=== PATIENT | male | born 1960 | race Caucasian/White ===

== ENCOUNTER 2017-11-02 14:48 | Inpatient (IN) | payer MEDICARE, OTHER ==
[~2017-11-02] VITALS: Ht 182.9 cm; Wt 63.0 kg
[2017-11-02] VITALS (9 sets, daily range): BP systolic 130–167; BP diastolic 63–76; PULSE 96–101; RESP 16–18; TEMP 97.8–98.5; O2SAT 97–100
[~2017-11-02 14:48] MED LIST: ECOT81TA2 PO; IPRAAER INH; OMEP20TA PO; OXYC15TA PO; VALS80 PO; XANA1TAB6 PO
[2017-11-02] MEDS ORDERED: DIOV80TA4 PO (15:19)
[2017-11-02] MEDS ORDERED: OMEP20TA93 PO (15:19)
[2017-11-02] MEDS ORDERED: OXYC15TA PO (15:19)
[2017-11-02] MEDS ORDERED: ASPI-516 PO (15:19)
[2017-11-02] MEDS: MORPHINE SULFATE 4 MG/ML INJ IV PUSH ONE ×2 (15:30→15:47)
[2017-11-02] MEDS ORDERED: SODIUM CHLOR 0.9% 1000 ML INJ 1,000 ML IV ONE (15:30)
[2017-11-02] MEDS ORDERED: ONDANSETRON HCL 4 MG/2 ML VIAL IV PUSH ONE (15:30)
--- NOTE | 2017-11-02 15:41 | PD ---
HPI Chief Complaint: Pain: Acute or Chronic Time Seen by Provider: 15:26 Travel History International Travel<30 days: No Contact w/Intl Traveler<30days: No Traveled to known affect area: No History of Present Illness HPI 57-year-old male with a history of Takayasu arteritis, vasculitis, rheumatoid arthritis and leukemia presents to emergency department complaining of right leg pain for the last 3 days. Patient also states he has felt dizzy constantly has had a decreased appetite. States his leg pain issues on the anterior aspects of the entire leg. Rated 10/10. Nothing improves or exacerbates his pain. Describes his pain as constant an achy. States he has chronic constipation and his last bowel movement was 4-5 days ago. In addition, patient also complains of lower abdominal pain and cramping. Patient denies radiation of pain. States he had abdominal surgery years ago on his abdominal wall. 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 Avelar. Previously, he followed Dr. Avelar for his chronic arteritis. Patient takes a baby aspirin daily but otherwise no other blood thinners. Patient denies chronic cardiac or pulmonary issues. Denies fever or chills. PFSH Past Medical History Hx Anticoagulant Therapy: Yes Anemia: Yes Blood Disorders: Yes Cancer: Yes Cardiovascular Problems: No Diabetes: No Endocrine: No Genitourinary: No Hepatitis: No Hiatal Hernia: Yes Hypertension: Yes Immune Disorder: Yes Musculoskeletal: No Neurologic: No Psychiatric: No Reproductive: No Respiratory: Yes Thyroid Disease: No Tetanus Vaccination: Unknown Influenza Vaccination: No Past Surgical History Abdominal Surgery: Yes (HERNIA REPAIR) AICD: No Ear Surgery: No Eye Surgery: No Genitourinary Surgery: No Gynecologic Surgery: No Oral Surgery: Yes (TEETH REMOVED) Other Surgery: Yes Social History Alcohol Use: Yes (ONE DRINK A DAY) Tobacco Use: Yes Substance Use: Yes (POT) Allergies-Medications (Allergen,Severity, Reaction): Coded Allergies: ciprofloxacin (Verified Allergy, Severe, 11/02/17) seizures,foaming at mouth Sulfa (Sulfonamide Antibiotics) (Verified Allergy, Intermediate, hives, ) penicillin G (Verified Adverse Reaction, Severe, seizure, 11/02/17) seizure, foaming at mouth ibuprofen (Verified Adverse Reaction, Intermediate, abdominal pain, ) severe abdominal pain morphine (Verified Adverse Reaction, Intermediate, Nausea/Vomiting, ) Uncoded Allergies: mycin (Adverse Reaction, Intermediate, 02/07/15) able to take zpac, has stomach ache diarhea Reported Meds & Prescriptions Reported Meds & Active Scripts Active Reported Omeprazole 20 Mg Tab 20 Mg PO EVERY OTHER DAY Oxycodone (Oxycodone HCl) 15 Mg Tab 15 Mg PO Q6HR Aspirin 81 Mg Chew 81 Mg PO HS Diovan (Valsartan) 80 Mg Tab 80 Mg PO HS Review of Systems Except as stated in HPI: all other systems reviewed are Neg Physical Exam Narrative GENERAL: Well-developed well-nourished, pale, easily agitated SKIN: Focused skin assessment warm/dry. Pale HEAD: Atraumatic. Normocephalic. EYES: Pupils equal and round. No scleral icterus. No injection or drainage. Pale conjunctivae ENT: No nasal bleeding or discharge. Mucous membranes pink and moist. NECK: Trachea midline. No JVD. CARDIOVASCULAR: Regular rate and rhythm. No murmur appreciated. RESPIRATORY: No accessory muscle use. Clear to auscultation. Breath sounds equal bilaterally. GASTROINTESTINAL: Abdomen soft, non-tender, nondistended. Hepatic and splenic margins not palpable. Good rectal tone, brown stool. MUSCULOSKELETAL: No obvious deformities. No clubbing. No cyanosis. No edema. NEUROLOGICAL: Awake and alert. No obvious cranial nerve deficits. Motor grossly within normal limits. Normal speech. PSYCHIATRIC: Appropriate mood and affect; insight and judgment normal. Data Data Last Documented VS Vital Signs Date Time Temp Pulse Resp B/P (MAP) Pulse Ox O2 Delivery O2 Flow Rate FiO2 11/02/17 17:00 97.8 98 17 153/65 (94) 99 Room Air Orders Orders Electrocardiogram (11/02/17 15:26) Complete Blood Count With Diff (11/02/17 15:26) Comprehensive Metabolic Panel (11/02/17 15:26) Prothrombin Time / Inr (Pt) (11/02/17 15:26) Act Partial Throm Time (Ptt) (11/02/17 15:26) Urinalysis - C+S If Indicated (11/02/17 15:26) Type And Screen (11/02/17 15:26) Chest, Single Ap (11/02/17 15:26) Oxygen Administration (11/02/17 15:26) Ecg Monitoring (11/02/17 15:26) Morphine Inj (Morphine Inj) (11/02/17 15:30) Orthostatic Vital Signs (11/02/17 15:29) Ondansetron Inj (Zofran Inj) (11/02/17 15:30) Sodium Chlor 0.9% 1000 Ml Inj (Ns 1000 M (11/02/17 15:30) Oxycodone (Roxicodone) (11/02/17 16:00) Red Blood Cells (Rbc) (11/02/17 17:17) Blood Product Administration (11/02/17 17:17) Admit Order (Ed Use Only) (11/02/17 17:28) Labs Laboratory Tests Test 11/02/17 15:30 11/02/17 16:30 Haptoglobin 189 MG/DL Prothrombin Time 11.0 SEC Prothromb Time International Ratio 1.1 RATIO Activated Partial Thromboplast Time 22.6 SEC Blood Urea Nitrogen 15 MG/DL Creatinine 1.21 MG/DL Random Glucose 192 MG/DL Total Protein 7.0 GM/DL Albumin 3.3 GM/DL Calcium Level 9.0 MG/DL Alkaline Phosphatase 90 U/L Aspartate Amino Transf (AST/SGOT) 19 U/L Alanine Aminotransferase (ALT/SGPT) 16 U/L Total Bilirubin 1.2 MG/DL Sodium Level 129 MEQ/L Potassium Level 4.0 MEQ/L Chloride Level 93 MEQ/L Carbon Dioxide Level 23.1 MEQ/L Anion Gap 13 MEQ/L Estimat Glomerular Filtration Rate 62 ML/MIN Iron Level 197 MCG/DL Total Iron Binding Capacity 202 MCG/DL Percent Iron Saturation 97.7 % Vitamin B12 Level 464 PG/ML Folate 1.2 NG/ML White Blood Count 3.9 TH/MM3 Red Blood Count 0.75 MIL/MM3 Hemoglobin 3.4 GM/DL Hematocrit 9.7 % Mean Corpuscular Volume 129.8 FL Mean Corpuscular Hemoglobin 45.0 PG Mean Corpuscular Hemoglobin Concent 34.7 % Red Cell Distribution Width 15.3 % Platelet Count 299 TH/MM3 Mean Platelet Volume 6.5 FL Neutrophils (%) (Auto) 85.4 % Lymphocytes (%) (Auto) 10.3 % Monocytes (%) (Auto) 3.8 % Eosinophils (%) (Auto) 0.2 % Basophils (%) (Auto) 0.3 % Neutrophils # (Auto) 3.3 TH/MM3 Lymphocytes # (Auto) 0.4 TH/MM3 Monocytes # (Auto) 0.2 TH/MM3 Eosinophils # (Auto) 0.0 TH/MM3 Basophils # (Auto) 0.0 TH/MM3 CBC Comment AUTO DIFF Differential Comment AUTO DIFF CONFIRMED Platelet Estimate NORMAL Platelet Morphology Comment NORMAL Basophilic Stippling FAINT Spherocytes OCC Reticulocyte Count 1.2 % Absolute Reticulocyte Count 8.8 MIL/L Hematology Comments [facility] Medical Decision Making Medical Screen Exam Complete: Yes Emergency Medical Condition: Yes Differential Diagnosis Anemia, pneumonia, upper respiratory infection, rheumatoid arthritis, constipation Narrative Course 57-year-old male with a history of Takayasu arteritis, vasculitis, rheumatoid arthritis and leukemia presents to emergency department complaining of right leg pain for the last 3 days. Patient also states he has felt dizzy constantly has had a decreased appetite. States his leg pain issues on the anterior aspects of the entire leg. Rated 10/10. Nothing improves or exacerbates his pain. Describes his pain as constant an achy. States he has chronic constipation and his last bowel movement was 4-5 days ago. In addition, patient also complains of lower abdominal pain and cramping. Patient denies radiation of pain. States he had abdominal surgery years ago on his abdominal wall. 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 Avelar. Previously, he followed Dr. Avelar for his chronic arteritis N Dr. Shelton for his rheumatoid arthritis. Patient takes a baby aspirin daily but otherwise no other blood thinners. Patient denies chronic cardiac or pulmonary issues. Denies fever or chills. He says he has had leukemia since 2001 and previously followed [facility]. Vital signs stable. Physical exam findings-pale skin, good rectal tone with brown stool. Guaiac negative. Last Impressions Chest X-Ray 11/02/17 1526 Signed Impressions: Service Date/Time: Thursday, November 02, 2017 15:35 - CONCLUSION: 1. No acute cardiopulmonary findings. Deven Govea MD Laboratory Tests Test 11/02/17 15:30 11/02/17 16:30 Prothrombin Time 11.0 SEC Prothromb Time International Ratio 1.1 RATIO Activated Partial Thromboplast Time 22.6 SEC Blood Urea Nitrogen 15 MG/DL Creatinine 1.21 MG/DL Random Glucose 192 MG/DL Total Protein 7.0 GM/DL Albumin 3.3 GM/DL Calcium Level 9.0 MG/DL Alkaline Phosphatase 90 U/L Aspartate Amino Transf (AST/SGOT) 19 U/L Alanine Aminotransferase (ALT/SGPT) 16 U/L Total Bilirubin 1.2 MG/DL Sodium Level 129 MEQ/L Potassium Level 4.0 MEQ/L Chloride Level 93 MEQ/L Carbon Dioxide Level 23.1 MEQ/L Anion Gap 13 MEQ/L Estimat Glomerular Filtration Rate 62 ML/MIN White Blood Count 3.9 TH/MM3 Red Blood Count 0.75 MIL/MM3 Hemoglobin 3.4 GM/DL Hematocrit 9.7 % Mean Corpuscular Volume 129.8 FL Mean Corpuscular Hemoglobin 45.0 PG Mean Corpuscular Hemoglobin Concent 34.7 % Red Cell Distribution Width 15.3 % Platelet Count 299 TH/MM3 Mean Platelet Volume 6.5 FL Neutrophils (%) (Auto) 85.4 % Lymphocytes (%) (Auto) 10.3 % Monocytes (%) (Auto) 3.8 % Eosinophils (%) (Auto) 0.2 % Basophils (%) (Auto) 0.3 % Neutrophils # (Auto) 3.3 TH/MM3 Lymphocytes # (Auto) 0.4 TH/MM3 Monocytes # (Auto) 0.2 TH/MM3 Eosinophils # (Auto) 0.0 TH/MM3 Basophils # (Auto) 0.0 TH/MM3 CBC Comment AUTO DIFF 3 units PRBCs typed and screened. Oxycodone 15 mg administered in the emergency department for lower extremity pain. Note that patient takes this dose at home for his chronic leg pain and says he folows Dr Caballero for his rheumatoid arthritis. Pt does not follow heme/onc. Pt will be admitted to Dr. Cook for blood transfusion and monitoring. HemaPrompt Point of Care Internal Pos. & Neg. Controls: Passed Fecal Specimen Occult Blood: Negative Diagnosis Primary Impression: Anemia Qualified Codes: D63.8 - Anemia in other chronic diseases classified elsewhere Admitting Information Admitting Physician Requests: Admit Condition: Stable Jenn Pool Nov 02, 2017 15:41
--- NOTE | 2017-11-02 16:21 | RADRPT ---
EXAM DATE/TIME: 11/02/2017 15:35 [facility] COMPARISON: No previous studies available for comparison. INDICATIONS : Short of breath, weakness chest and back pain MEDICAL HISTORY : thrombolytic therapy, asthma SURGICAL HISTORY : None. ENCOUNTER: Initial ACUITY: 1 day PAIN SCORE: 10/10 LOCATION: Bilateral chest FINDINGS: A single view of the chest demonstrates the lungs to be symmetrically aerated without evidence of mas s, infiltrate or effusion. The cardiomediastinal contours are unremarkable. Osseous structures are intact. CONCLUSION: 1. No acute cardiopulmonary findings. Deven Govea MD on November 02, 2017 at 16:18 Board Certified Radiologist. This report was verified electronically.
[2017-11-02 16:29] LABS: INTERNATIONAL NORMALIZED RATIO 1.1 RATIO
[2017-11-02 16:40] LABS: ALBUMIN 3.3 GM/DL (3.4-5.0); AST (GOT) 19 U/L (15-37); BICARBONATE 23.1 MEQ/L (21.0-32.0); BLOOD UREA NITROGEN 15 MG/DL (7-18); CHLORIDE 93 MEQ/L (98-107); CREATININE 1.21 MG/DL (0.60-1.30); GLOMERULAR FILTRATION RATE 62 ML/MIN (>89); GLUCOSE,RANDOM 192 MG/DL (74-106); SODIUM (NA) 129 MEQ/L (136-145)
[2017-11-02 16:41] LABS: ALT (GPT) 16 U/L (12-78)
[2017-11-02 16:43] LABS: ALKALINE PHOSPHATASE 90 U/L (45-117); TOTAL BILIRUBIN ADULT 1.2 MG/DL (0.2-1.0)
[2017-11-02 17:07] LABS: AUTOMATED NEUTROPHIL # 3.3 TH/MM3 (1.8-7.7); BASOPHIL % 0.3 % (0.0-2.0); EOSINOPHIL % 0.2 % (0.0-4.0); LYMPH % 10.3 % (9.0-44.0); LYMPHOCYTE # 0.4 TH/MM3 (1.0-4.8); MEAN CELL VOLUME 129.8 FL (80.0-100.0); MEAN CORPUSCULAR HGB CONC 34.7 % (32.0-36.0); MEAN PLATELET VOLUME 6.5 FL (7.0-11.0); MONO % 3.8 % (0.0-8.0); MONOCYTE # 0.2 TH/MM3 (0-0.9); NEUT % 85.4 % (16.0-70.0); PLATELET COUNT 299 TH/MM3 (150-450); RED CELL DISTRIBUTION WIDTH 15.3 % (11.6-17.2); WHITE BLOOD COUNT 3.9 TH/MM3 (4.0-11.0)
[2017-11-02 17:10] LABS: RED BLOOD COUNT 0.75 MIL/MM3 (4.50-5.90)
[2017-11-02 17:14] LABS: HEMATOCRIT 9.7 % (39.0-51.0); HEMOGLOBIN 3.4 GM/DL (13.0-17.0)
[2017-11-02 17:39] LABS: SPHEROCYTES OCC (NORMAL)
--- NOTE | 2017-11-02 17:40 | HHI.HP ---
HPI [facility] Primary Care Physician No Primary Care Physician Admission Diagnosis Anemia Diagnoses: (1) Symptomatic anemia Chief Complaint: Fatigue, and I look pale Travel History International Travel<30 Days: No Contact w/Intl Traveler <30 Da: No Traveled to Known Affected Are: No History of Present Illness 57-year-old male with a history of Takayasu arteritis and her hypertension came to the emergency department for evaluation of bilateral lower extremity pain 5 days along with generalized fatigue. His had significant leg cramping. Patient also reported episode of dizziness as well as decreased appetite over the past several days. Patient also reported episode of bright red blood per rectum with last episode 4 days ago. However over the past few days patient has reported constipation and abdominal pain. He is been followed by Dr. Ross for his chronic arthritis was ordered some laboratory work, and patient was found to have low hemoglobin for which he was referred to the emergency department. He also reported shortness of breath however denies any chest pain. He has no hemoptysis or hematuria. H&H in the ED was 3.4/9.7 Review of Systems Except as stated in HPI: all other systems reviewed are Neg Past Family Social History Past Medical History History of Takayasu arteritis, Vasculitis, Rheumatoid arthritis Leukemia Hypertension PAD Past Surgical History Hernia repair Fem-pop Reported Medications Omeprazole 20 Mg Tab 20 Mg PO EVERY OTHER DAY Oxycodone (Oxycodone HCl) 15 Mg Tab 15 Mg PO Q6HR Aspirin 81 Mg Chew 81 Mg PO HS Diovan (Valsartan) 80 Mg Tab 80 Mg PO HS Allergies: Coded Allergies: ciprofloxacin (Verified Allergy, Severe, 11/02/17) seizures,foaming at mouth Sulfa (Sulfonamide Antibiotics) (Verified Allergy, Intermediate, hives, ) penicillin G (Verified Adverse Reaction, Severe, seizure, 11/02/17) seizure, foaming at mouth ibuprofen (Verified Adverse Reaction, Intermediate, abdominal pain, ) severe abdominal pain morphine (Verified Adverse Reaction, Intermediate, Nausea/Vomiting, ) Uncoded Allergies: mycin (Adverse Reaction, Intermediate, 02/07/15) able to take zpac, has stomach ache diarhea Family History Positive for heart disease, hypertension, diabetes in both parents Social History Alcohol Use: Yes (ONE DRINK A DAY) Tobacco Use: Yes Substance Use: Yes (POT) Physical Exam Vital Signs Vital Signs Date Time Temp Pulse Resp B/P (MAP) Pulse Ox O2 Delivery O2 Flow Rate FiO2 11/02/17 17:00 97.8 98 17 153/65 (94) 99 Room Air 11/02/17 17:00 17 11/02/17 15:29 100 18 140/63 (88) 98 17 154/63 (93) 11/02/17 15:29 100 Room Air 11/02/17 15:12 98.5 96 18 140/63 (88) 100 Room Air 11/02/17 15:12 98 18 11/02/17 15:07 98.5 99 18 140/63 (88) 97 Physical Exam GENERAL: This is a well-nourished, well-developed patient, in no apparent distress. SKIN: No rashes, ecchymoses or lesions. Cool and dry. HEAD: Atraumatic. Normocephalic. No temporal or scalp tenderness. EYES: Pupils equal round and reactive. Extraocular motions intact. No scleral icterus. No injection or drainage. ENT: Nose without bleeding, purulent drainage or septal hematoma. Throat without erythema, tonsillar hypertrophy or exudate. Uvula midline. Airway patent. NECK: Trachea midline. No JVD or lymphadenopathy. Supple, nontender, no meningeal signs. CARDIOVASCULAR: Regular rate and rhythm with II/ LOC RESPIRATORY: Clear to auscultation. Breath sounds equal bilaterally. No wheezes , rales, or rhonchi. GASTROINTESTINAL: Abdomen soft, non-tender, nondistended. No hepato-splenomegaly , or palpable masses. No guarding. MUSCULOSKELETAL: Extremities without clubbing, cyanosis, or edema. No joint tenderness, effusion, or edema noted. No calf tenderness. Negative Homans sign bilaterally. NEUROLOGICAL: Awake and alert. Cranial nerves II through XII intact. Motor and sensory grossly within normal limits. Five out of 5 muscle strength in all muscle groups. Normal speech. Laboratory Laboratory Tests Test 11/02/17 15:30 11/02/17 16:30 Prothrombin Time 11.0 Prothromb Time International Ratio 1.1 Activated Partial Thromboplast Time 22.6 Blood Urea Nitrogen 15 Creatinine 1.21 Random Glucose 192 Total Protein 7.0 Albumin 3.3 Calcium Level 9.0 Alkaline Phosphatase 90 Aspartate Amino Transf (AST/SGOT) 19 Alanine Aminotransferase (ALT/SGPT) 16 Total Bilirubin 1.2 Sodium Level 129 Potassium Level 4.0 Chloride Level 93 Carbon Dioxide Level 23.1 Anion Gap 13 Estimat Glomerular Filtration Rate 62 White Blood Count 3.9 Red Blood Count 0.75 Hemoglobin 3.4 Hematocrit 9.7 Mean Corpuscular Volume 129.8 Mean Corpuscular Hemoglobin 45.0 Mean Corpuscular Hemoglobin Concent 34.7 Red Cell Distribution Width 15.3 Platelet Count 299 Mean Platelet Volume 6.5 Neutrophils (%) (Auto) 85.4 Lymphocytes (%) (Auto) 10.3 Monocytes (%) (Auto) 3.8 Eosinophils (%) (Auto) 0.2 Basophils (%) (Auto) 0.3 Neutrophils # (Auto) 3.3 Lymphocytes # (Auto) 0.4 Monocytes # (Auto) 0.2 Eosinophils # (Auto) 0.0 Basophils # (Auto) 0.0 CBC Comment AUTO DIFF Result Diagram: 11/02/17 1630 11/02/17 1530 Imaging Last Impressions Chest X-Ray 11/02/17 1526 Signed Impressions: Service Date/Time: Thursday, November 02, 2017 15:35 - CONCLUSION: 1. No acute cardiopulmonary findings. MD Coleen Cardenas VTE Risk Assessment Coleen VTE Risk Assessment: No/Low Risk (score <= 1) Caprini Risk Assessment Model Point Value = 1 Point Value = 2 Point Value = 3 Point Value = 5 Age 41-60 Minor surgery BMI > 25 kg/m2 Swollen legs Varicose veins or History of unexplained or recurrent spontaneous Oral contraceptives or hormone replacement Sepsis (< 1 month) Serious lung disease, including pneumonia (< 1 month) Abnormal pulmonary function Acute myocardial infarction Congestive heart failure (< 1 month) History of inflammatory bowel disease Medical patient at bed rest Age 61-74 Arthroscopic surgery Major open surgery (> 45 min) Laparoscopic surgery (> 45 min) Malignancy Confined to bed (> 72 hours) Immobilizing plaster cast Central venous access Age >= 75 History of VTE Family history of VTE Factor V Leiden Prothrombin [id number] Lupus anticoagulant Anticardiolipin antibodies Elevated serum homocysteine Heparin-induced thrombocytopenia Other congenital or acquired thrombophilia Stroke (< 1 month) Elective arthroplasty Hip, pelvis, or leg fracture Acute spinal cord injury (< 1 month) Prophylaxis Regimen Total Risk Factor Score Risk Level Prophylaxis Regimen 0-1 Low Early ambulation 2 Moderate Order ONE of the following: *Sequential Compression Device (SCD) *Heparin 5000 units SQ BID 3-4 Higher Order ONE of the following medications: *Heparin 5000 units SQ TID *Enoxaparin/Lovenox 40 mg SQ daily (WT < 150 kg, CrCl > 30 mL/min) *Enoxaparin/Lovenox 30 mg SQ daily (WT < 150 kg, CrCl > 10-29 mL/min) *Enoxaparin/Lovenox 30 mg SQ BID (WT < 150 kg, CrCl > 30 mL/min) AND/OR *Sequential Compression Device (SCD) 5 or more Highest Order ONE of the following medications: *Heparin 5000 units SQ TID (Preferred with Epidurals) *Enoxaparin/Lovenox 40 mg SQ daily (WT < 150 kg, CrCl > 30 mL/min) *Enoxaparin/Lovenox 30 mg SQ daily (WT < 150 kg, CrCl > 10-29 mL/min) *Enoxaparin/Lovenox 30 mg SQ BID (WT < 150 kg, CrCl > 30 mL/min) AND *Sequential Compression Device (SCD) Assessment and Plan Problem List: (1) Symptomatic anemia ICD Code: D64.9 - Anemia, unspecified Assessment and Plan 57 years with Symptomatic anemia GI bleeding Transfuse 3 units PRBC Consult GI for evaluation for possible Panendoscopy Consult hematology,as patient with a h/o leukemia Check iron study/haptoglobin/reticulocyte count/B-12 and folate Serial H&H monitoring and hold aspirin PPI Hypertension Resume outpatient medications Mild hyponatremia Monitor electrolytes Constipation secondary to narcotic use Stool softener DVT prophylaxis: Chemical anti-prophylaxis is contraindicated GI prophylaxis: PPI Code Status Full code Discussed Condition With Patient, ED PA Physician Certification 2 Midnight Certification Type: Admission for Inpatient Services Order for Inpatient Services The services are ordered in accordance with Medicare regulations or non- Medicare payer requirements, as applicable. In the case of services not specified as inpatient-only, they are appropriately provided as inpatient services in accordance with the 2-midnight benchmark. Estimated LOS (days): 2 days is the estimated time the patient will need to remain in the hospital, assuming treatment plan goals are met and no additional complications. Post-Hospital Plan: Not yet determined Lobito Cook MD Nov 02, 2017 17:40
[2017-11-02] MEDS ORDERED: BISACODYL 10 MG SUPP RECTAL PRN (17:45)
[2017-11-02] MEDS ORDERED: LACTULOSE SYRUP 20 GM/30 ML CUP PO PRN (17:45)
[2017-11-02] MEDS ORDERED: NALOXONE HCL 0.4 MG/ML AMP IV PUSH PRN (17:45)
[2017-11-02] MEDS ORDERED: SODIUM CHLORIDE 0.9% FLUSH 10 ML FLUSH IV FLUSH PRN (17:45)
[2017-11-02] MEDS ORDERED: SENNOSIDES 8.6 MG TAB PO PRN (17:45)
[2017-11-02] MEDS ORDERED: MAGNESIUM HYDROXIDE SUSP 30 ML CUP PO PRN (17:45)
[2017-11-02] MEDS ORDERED: ACETAMINOPHEN 325 MG TAB PO PRN ×2 (17:45)
[2017-11-02 18:39] LABS: RETIC # 8.8 MIL/L (20.0-150.0); RETIC % 1.2 % (0.4-3.0)
[2017-11-02 18:56] LABS: % SATURATION IRON PROFILE 97.7 % (20-50); IRON (FE) 197 MCG/DL (65-175); TOTAL IRON BINDING CAPACITY 202 MCG/DL (250-450)
[2017-11-02 19:21] LABS: FOLATE 1.2 NG/ML (3.1-17.5)
--- NOTE | 2017-11-02 19:46 | PD ---
Data Data Last Documented VS Vital Signs Date Time Temp Pulse Resp B/P (MAP) Pulse Ox O2 Delivery O2 Flow Rate FiO2 11/02/17 17:00 97.8 98 17 153/65 (94) 99 Room Air Orders Orders Electrocardiogram (11/02/17 15:26) Complete Blood Count With Diff (11/02/17 15:26) Comprehensive Metabolic Panel (11/02/17 15:26) Prothrombin Time / Inr (Pt) (11/02/17 15:26) Act Partial Throm Time (Ptt) (11/02/17 15:26) Urinalysis - C+S If Indicated (11/02/17 15:26) Type And Screen (11/02/17 15:26) Chest, Single Ap (11/02/17 15:26) Oxygen Administration (11/02/17 15:26) Ecg Monitoring (11/02/17 15:26) Morphine Inj (Morphine Inj) (11/02/17 15:30) Orthostatic Vital Signs (11/02/17 15:29) Ondansetron Inj (Zofran Inj) (11/02/17 15:30) Sodium Chlor 0.9% 1000 Ml Inj (Ns 1000 M (11/02/17 15:30) Oxycodone (Roxicodone) (11/02/17 16:00) Red Blood Cells (Rbc) (11/02/17 17:17) Blood Product Administration (11/02/17 17:17) Admit Order (Ed Use Only) (11/02/17 17:28) Labs Laboratory Tests Test 11/02/17 15:30 11/02/17 16:30 Haptoglobin 189 MG/DL Prothrombin Time 11.0 SEC Prothromb Time International Ratio 1.1 RATIO Activated Partial Thromboplast Time 22.6 SEC Blood Urea Nitrogen 15 MG/DL Creatinine 1.21 MG/DL Random Glucose 192 MG/DL Total Protein 7.0 GM/DL Albumin 3.3 GM/DL Calcium Level 9.0 MG/DL Alkaline Phosphatase 90 U/L Aspartate Amino Transf (AST/SGOT) 19 U/L Alanine Aminotransferase (ALT/SGPT) 16 U/L Total Bilirubin 1.2 MG/DL Sodium Level 129 MEQ/L Potassium Level 4.0 MEQ/L Chloride Level 93 MEQ/L Carbon Dioxide Level 23.1 MEQ/L Anion Gap 13 MEQ/L Estimat Glomerular Filtration Rate 62 ML/MIN Iron Level 197 MCG/DL Total Iron Binding Capacity 202 MCG/DL Percent Iron Saturation 97.7 % Vitamin B12 Level 464 PG/ML Folate 1.2 NG/ML White Blood Count 3.9 TH/MM3 Red Blood Count 0.75 MIL/MM3 Hemoglobin 3.4 GM/DL Hematocrit 9.7 % Mean Corpuscular Volume 129.8 FL Mean Corpuscular Hemoglobin 45.0 PG Mean Corpuscular Hemoglobin Concent 34.7 % Red Cell Distribution Width 15.3 % Platelet Count 299 TH/MM3 Mean Platelet Volume 6.5 FL Neutrophils (%) (Auto) 85.4 % Lymphocytes (%) (Auto) 10.3 % Monocytes (%) (Auto) 3.8 % Eosinophils (%) (Auto) 0.2 % Basophils (%) (Auto) 0.3 % Neutrophils # (Auto) 3.3 TH/MM3 Lymphocytes # (Auto) 0.4 TH/MM3 Monocytes # (Auto) 0.2 TH/MM3 Eosinophils # (Auto) 0.0 TH/MM3 Basophils # (Auto) 0.0 TH/MM3 CBC Comment AUTO DIFF Differential Comment AUTO DIFF CONFIRMED Platelet Estimate NORMAL Platelet Morphology Comment NORMAL Basophilic Stippling FAINT Spherocytes OCC Reticulocyte Count 1.2 % Absolute Reticulocyte Count 8.8 MIL/L Hematology Comments [facility] Supervised Visit with ARIANNA: Yes Narrative Course The history, exam, and medical decision-making in the associated midlevel provider note were completed with my assistance. I reviewed and agree with the findings presented. I attest that I had a [id number] encounter with the patient on the same day, and personally performed and documented my assessment and findings in the medical record. *My assessment and Findings: This is a 57-year-old male who presents to the emergency department with generalized weakness and shortness of breath. He has a history of leukemia which he reports he is not being treated for currently. Patient is very pale on exam. Hemoglobin was found to be 3.4. Patient was Hemoccult negative. He will be admitted for transfusion and likely hematology consultation. Patient will be admitted for blood transfusion and likely hematology consultation. I suspect this is chronic anemia Diagnosis Primary Impression: Anemia Qualified Codes: D63.8 - Anemia in other chronic diseases classified elsewhere Admitting Information Admitting Physician Requests: Admit Condition: Stable Josephine Early MD Nov 02, 2017 19:46
[2017-11-02] MEDS: DOCUSATE SODIUM 50 MG/SENNA 8.6 MG TAB PO SCH (20:21)
[2017-11-02] MEDS: VALSARTAN 80 MG TAB PO SCH (20:21)
[2017-11-02] MEDS: SODIUM CHLORIDE 0.9% FLUSH 10 ML FLUSH IV FLUSH SCH (20:23)
[2017-11-02] MEDS ORDERED: SODIUM CHLORIDE 0.9% FLUSH 10 ML FLUSH IV FLUSH SCH (21:00)
[2017-11-02 21:58] LABS: CA 19-9 5.9 U/ML (0.0-35.0)
[2017-11-02 23:52] LABS: BACTERIA, URINE OCC /hpf; BILIRUBIN, URINE NEG (NEG); BLOOD, URINE NEG (NEG); GLUCOSE,URINE NEG (NEG); HYALINE CAST, URINE 6 /lpf (RARE); KETONE, URINE TRACE mg/dL (NEG); MUCUS URINE FEW /lpf (OCC); NITRITE,URINE NEG (NEG); PH, URINE 5.5 (5.0-8.5); URIC ACID CRYSTALS, URINE RARE /hpf; URINE COLOR YELLOW (YELLW/STRAW); URINE LEUKOCYTE ESTERASE TRACE (NEG)
[2017-11-03] VITALS (19 sets, daily range): BP systolic 128–160; BP diastolic 60–82; PULSE 95–111; RESP 16–19; TEMP 98.2–99.2; O2SAT 98–100
[2017-11-03 01:31] LABS: CARCINOEMBRYONIC ANTIGEN 5.6 NG/ML (0.2-5.0)
[2017-11-03] MEDS: ONDANSETRON HCL 4 MG/2 ML VIAL IVP PRN (02:22)
[2017-11-03] MEDS ORDERED: ALPRAZolam 1 MG TAB PO ONE (03:00)
[2017-11-03] MEDS: SODIUM CHLORIDE 0.9% FLUSH 10 ML FLUSH IV FLUSH SCH ×2 (07:50→20:54)
[2017-11-03] MEDS: DOCUSATE SODIUM 50 MG/SENNA 8.6 MG TAB PO SCH ×2 (08:39→20:51)
--- NOTE | 2017-11-03 10:18 | EKG ---
Date Performed: 11/02/2017 Time Performed: 16:05:44 PTAGE: 57 years EKG: Sinus rhythm MODERATE ST DEPRESSION ABNORMAL ECG PREVIOUS TRACING : 02/11/2015 07.13 DOCTOR: Anshul Waterman Interpretating Date/Time 11/03/2017 10:17:00
[2017-11-03] MEDS ORDERED: oxyCODONE/ACETAMINOPHEN 5 MG/325 MG TAB PO PRN (10:45)
[2017-11-03] MEDS ORDERED: SODIUM CHLORIDE 0.9% FLUSH 10 ML FLUSH IV FLUSH PRN (10:45)
[2017-11-03] MEDS ORDERED: SENNOSIDES 8.6 MG TAB PO PRN (10:45)
[2017-11-03] MEDS ORDERED: BISACODYL 10 MG SUPP RECTAL PRN (10:45)
[2017-11-03] MEDS ORDERED: ACETAMINOPHEN 325 MG TAB PO PRN ×3 (10:45→12:45)
[2017-11-03] MEDS ORDERED: LACTULOSE SYRUP 20 GM/30 ML CUP PO PRN (10:45)
[2017-11-03] MEDS ORDERED: ONDANSETRON HCL 4 MG/2 ML VIAL IVP PRN (10:45)
[2017-11-03] MEDS ORDERED: MORPHINE SULFATE 2 MG/ML INJ IV PUSH PRN ×2 (10:45)
[2017-11-03] MEDS ORDERED: oxyCODONE/ACETAMINOPHEN 10 MG/325 MG TAB PO PRN (10:45)
[2017-11-03] MEDS ORDERED: MAGNESIUM HYDROXIDE SUSP 30 ML CUP PO PRN (10:45)
[2017-11-03] MEDS ORDERED: METOCLOPRAMIDE HCL 10 MG/2 ML VIAL IV PUSH PRN (10:45)
[2017-11-03] MEDS ORDERED: NALOXONE HCL 0.4 MG/ML AMP IV PUSH PRN (10:45)
--- NOTE | 2017-11-03 10:45 | HHI.PR ---
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 His had significant leg cramping. Patient also reported episode of dizziness as well as decreased appetite over the past several days. Patient also reported episode of bright red blood per rectum with last episode 4 days ago. However over the past few days patient has reported constipation and abdominal pain. He is been followed by Dr. Ross for his chronic arthritis was ordered some laboratory work, and patient was found to have low hemoglobin for which he was referred to the emergency department. He also reported shortness of breath however denies any chest pain. He has no hemoptysis or hematuria. H&H in the ED was 3.4/9.7 11-03 PATIENT HAS BEEN TRANSFUSED 2 UNITS PRBC WILL GET REPEAT LABS ALSO STATES NOT TOO MOBILE AT HOME WILL GET PT AND OT TO EVAL AND TREAT IS BEING SEEN BY GI AM LABS DW PATIENT AND RN Objective Vitals Vital Signs Date Time Temp Pulse Resp B/P (MAP) Pulse Ox O2 Delivery O2 Flow Rate FiO2 11/03/17 08:08 98.2 99 17 157/74 (101) 99 11/03/17 04:27 98.2 98 17 148/76 98 11/03/17 04:00 101 11/03/17 04:00 Room Air 11/03/17 04:00 98.2 111 16 140/76 (97) 98 11/03/17 01:30 99.0 100 19 160/82 98 11/03/17 01:30 Room Air 11/03/17 01:15 98.4 100 18 158/72 99 11/03/17 01:00 98.4 95 18 151/71 98 11/03/17 00:21 96 11/03/17 00:00 98.2 99 16 148/67 (94) 100 11/02/17 20:42 98 11/02/17 20:00 98.1 98 16 167/72 (103) 100 11/02/17 19:10 11/02/17 19:05 98.4 98 18 130/76 100 11/02/17 18:26 98.2 98 17 137/63 100 11/02/17 18:11 98.4 101 17 137/63 100 11/02/17 17:00 97.8 98 17 153/65 (94) 99 Room Air 11/02/17 17:00 17 11/02/17 15:29 100 18 140/63 (88) 98 17 154/63 (93) 11/02/17 15:29 100 Room Air 11/02/17 15:12 98.5 96 18 140/63 (88) 100 Room Air 11/02/17 15:12 98 18 11/02/17 15:07 98.5 99 18 140/63 (88) 97 I/O 11/02/17 11/02/17 11/02/17 11/03/17 11/03/17 11/03/17 07:00 15:00 23:00 07:00 15:00 23:00 Intake Total 1815 ml 420 ml Output Total 550 ml Balance 1815 ml -130 ml Intake Oral 0 ml IV Total 1000 ml Packed Cells 400 ml 400 ml Blood Product IV Normal Saline Flush 415 ml 20 ml Output Urine Total 550 ml Bladder Scan Volume Amount 999 ml # Bowel Movements 1 Result Diagram: 11/02/17 1630 11/02/17 1530 Other Results Laboratory Tests Test 11/02/17 15:30 11/02/17 16:30 11/02/17 19:51 11/02/17 22:40 Haptoglobin 189 MG/DL Prothrombin Time 11.0 SEC Prothromb Time International Ratio 1.1 RATIO Activated Partial Thromboplast Time 22.6 SEC Blood Urea Nitrogen 15 MG/DL Creatinine 1.21 MG/DL Random Glucose 192 MG/DL Total Protein 7.0 GM/DL Albumin 3.3 GM/DL Calcium Level 9.0 MG/DL Alkaline Phosphatase 90 U/L Aspartate Amino Transf (AST/SGOT) 19 U/L Alanine Aminotransferase (ALT/SGPT) 16 U/L Total Bilirubin 1.2 MG/DL Sodium Level 129 MEQ/L Potassium Level 4.0 MEQ/L Chloride Level 93 MEQ/L Carbon Dioxide Level 23.1 MEQ/L Anion Gap 13 MEQ/L Estimat Glomerular Filtration Rate 62 ML/MIN Iron Level 197 MCG/DL Total Iron Binding Capacity 202 MCG/DL Percent Iron Saturation 97.7 % Vitamin B12 Level 464 PG/ML Folate 1.2 NG/ML White Blood Count 3.9 TH/MM3 Red Blood Count 0.75 MIL/MM3 Hemoglobin 3.4 GM/DL Hematocrit 9.7 % Mean Corpuscular Volume 129.8 FL Mean Corpuscular Hemoglobin 45.0 PG Mean Corpuscular Hemoglobin Concent 34.7 % Red Cell Distribution Width 15.3 % Platelet Count 299 TH/MM3 Mean Platelet Volume 6.5 FL Neutrophils (%) (Auto) 85.4 % Lymphocytes (%) (Auto) 10.3 % Monocytes (%) (Auto) 3.8 % Eosinophils (%) (Auto) 0.2 % Basophils (%) (Auto) 0.3 % Neutrophils # (Auto) 3.3 TH/MM3 Lymphocytes # (Auto) 0.4 TH/MM3 Monocytes # (Auto) 0.2 TH/MM3 Eosinophils # (Auto) 0.0 TH/MM3 Basophils # (Auto) 0.0 TH/MM3 CBC Comment AUTO DIFF Differential Comment AUTO DIFF CONFIRMED Platelet Estimate NORMAL Platelet Morphology Comment NORMAL Basophilic Stippling FAINT Spherocytes OCC Reticulocyte Count 1.2 % Absolute Reticulocyte Count 8.8 MIL/L Hematology Comments Tumor Marker Alpha Fetoprotein 3.6 NG/ML Carcinoembryonic Antigen 5.6 NG/ML CA 19-9 Antigen 5.9 U/ML Urine Color YELLOW Urine Turbidity HAZY Urine pH 5.5 Urine Specific [place] 1.012 Urine Protein TRACE mg/dL Urine Glucose (UA) NEG mg/dL Urine Ketones TRACE mg/dL Urine Occult Blood NEG Urine Nitrite NEG Urine Bilirubin NEG Urine Urobilinogen LESS THAN 2.0 MG/DL Urine Leukocyte Esterase TRACE Urine RBC LESS THAN 1 /hpf Urine WBC 3 /hpf Urine Uric Acid Crystals RARE /hpf Urine Bacteria OCC /hpf Urine Hyaline Casts 6 /lpf Urine Mucus FEW /lpf Microscopic Urinalysis Comment CATH-CULTURE IND Imaging Last Impressions Chest X-Ray 11/02/17 1526 Signed Impressions: Service Date/Time: Thursday, November 02, 2017 15:35 - CONCLUSION: 1. No acute cardiopulmonary findings. Deven Govea MD Objective Remarks GENERAL: Awake alert oriented 3 talkative and cooperative appears to be in no acute distress SKIN: Warm and dry. HEAD: Atraumatic. Normocephalic. EYES: Pupils equal and round. No scleral icterus. No injection or drainage. Conjunctiva are pale extraocular muscles intact ENT: No nasal bleeding or discharge. Mucous membranes pink and moist. Tongue is midline NECK: Trachea midline. No JVD. Supple CARDIOVASCULAR: Regular rate and rhythm. S1 and S2 no S3 or S4 RESPIRATORY: No accessory muscle use. Clear to auscultation. Breath sounds equal bilaterally. GASTROINTESTINAL: Abdomen soft, non-tender, nondistended. Hepatic and splenic margins not palpable. MUSCULOSKELETAL: Extremities without clubbing, cyanosis, or edema. No obvious deformities. NEUROLOGICAL: Awake and alert. No obvious cranial nerve deficits. Motor grossly within normal limits. 4 out of 5 muscle strength in the arms and legs. Normal speech. PSYCHIATRIC: Appropriate mood and affect; insight and judgment normal. Medications and IVs Current Medications Morphine Sulfate (Morphine Inj) 4 mg ONCE ONCE IV PUSH ; Start 11/02/17 at 15: 30; Stop 11/02/17 at 15:32; Status DC Ondansetron HCl (Zofran Inj) 4 mg ONCE ONCE IV PUSH Last administered on at 15:47; Start 11/02/17 at 15:30; Stop 11/02/17 at 15:32; Status DC Sodium Chloride 1,000 ml @ 999 mls/hr BOLUS ONCE IV Last administered on 11/02at 15:46; Start 11/02/17 at 15:30; Stop 11/02/17 at 16:30; Status DC Oxycodone HCl (Roxicodone) 15 mg ONCE ONCE PO Last administered on 11/02/17at 16:00; Start 11/02/17 at 16:00; Stop 11/02/17 at 16:01; Status DC Sodium Chloride (NS Flush) 2 ml UNSCH PRN IV FLUSH FLUSH AFTER USING IV ACCESS ; Start 11/02/17 at 17:45 Sodium Chloride (NS Flush) 2 ml BID IV FLUSH Last administered on 11/03/17at 07: 50; Start 11/02/17 at 21:00 Acetaminophen (Tylenol) 650 mg Q4H PRN PO TEMP > 100.4; Start 11/02/17 at 17:45 Ondansetron HCl (Zofran Inj) 4 mg Q6H PRN IVP NAUSEA OR VOMITING Last administered on 11/03/17at 02:22; Start 11/02/17 at 17:45 Acetaminophen (Tylenol) 650 mg Q6H PRN PO PAIN SCALE 1 TO 2; Start 11/02/17 at 17:45 Naloxone HCl (Narcan Inj) 0.4 mg UNSCH PRN IV PUSH SEE LABEL COMMENTS; Start at 17:45 Senna/Docusate Sodium (Joselin-Colace) 1 tab BID PO Last administered on at 08:39; Start 11/02/17 at 21:00 Magnesium Hydroxide (Milk Of Magnesia Liq) 30 ml Q12H PRN PO Mild constipation ; Start 11/02/17 at 17:45 Sennosides (Senokot) 17.2 mg Q12H PRN PO Moderate constipation; Start 11/02/17 at 17:45 Bisacodyl (Dulcolax Supp) 10 mg DAILY PRN RECTAL SEVERE CONSITIPATION; Start at 17:45 Lactulose (Lactulose Liq) 30 ml DAILY PRN PO SEVERE CONSITIPATION; Start at 17:45 Sodium Chloride (NS Flush) 2 ml BID IV FLUSH ; Start 11/02/17 at 21:00; Status UNV Valsartan (Diovan) 80 mg HS PO Last administered on 11/02/17at 20:21; Start at 21:00 Oxycodone HCl (Roxicodone) 15 mg Q6H PRN PO pain >2-10 Last administered on at 08:40; Start 11/02/17 at 18:15 Alprazolam (Xanax) 1 mg ONCE ONCE PO Last administered on 11/03/17at 03:16; Start 11/03/17 at 03:00; Stop 11/03/17 at 03:01; Status DC A/P Problem List: (1) Symptomatic anemia ICD Code: D64.9 - Anemia, unspecified (2) Anemia ICD Code: D64.9 - Anemia, unspecified Status: Acute Assessment and Plan 57 years with Symptomatic anemia GI bleeding Transfuse 3 units PRBC Consult GI for evaluation for possible Panendoscopy Consult hematology,as patient with a h/o leukemia Check iron study/haptoglobin/reticulocyte count/B-12 and folate Serial H&H monitoring and hold aspirin PPI Hypertension Resume outpatient medications Mild hyponatremia Monitor electrolytes Constipation secondary to narcotic use Stool softener HAS HX OF PVOD/PAD WITH HX OF BL FEM-POP BYPASS SURGERY NONCOMPLIANCE GAIT INSTABILITY -WEAKNESS- CONSULT PT AND OT WILL NEED PROCEDURES DVT prophylaxis: Chemical anti-prophylaxis is contraindicated GI prophylaxis: PPI Discharge Planning PENDING IMPROVED HEMOGLOBIN AND CLEARANCE BY GI Problem Qualifiers (1) Anemia: Qualified Codes: D63.8 - Anemia in other chronic diseases classified elsewhere Ananth Valdez DO Nov 03, 2017 10:45
--- NOTE | 2017-11-03 11:48 | PD.CONS ---
HPI History of Present Illness This is a 57 year old male with Takayasu arteritis, hx leukemia, prostate ca, who presented with RLE pain, dizziness, weakness, and after multiple falls and was found to have hgb 3.4. GI has been consulted for LGIB. Pt admits constipation and has not had BM in 4-5 days. He also admits intermittent scant BRBPR, on the wipe after a BM. he denies profuse rectal bleeding, black tarry stool, hematemesis. He does admit lower abdy pain that is intermittent. This pain was severe when he was admitted and relieved after sweeney catheter placed. Admits hx hemorrhoids and rectal pain with straining. He does take opiates. He admits loss of 100lbs since 1998 when "[facility] told me I only had 2 years to live." He sees Dr Price and last saw him about a month ago and was going to schedule his next colonoscopy. Last colonoscopy 5-6 y ago adn 2 x benign polyps found. Never had EGD. Pt is poor historian. (Angelita Jacobsen) PFSH Past Medical History History of Takayasu arteritis, Vasculitis, Rheumatoid arthritis Leukemia Hypertension PAD Past Surgical History Hernia repair Fem-pop (Angelita Jacobsen) Coded Allergies: ciprofloxacin (Verified Allergy, Severe, 11/02/17) seizures,foaming at mouth Sulfa (Sulfonamide Antibiotics) (Verified Allergy, Intermediate, hives, ) penicillin G (Verified Adverse Reaction, Severe, seizure, 11/02/17) seizure, foaming at mouth ibuprofen (Verified Adverse Reaction, Intermediate, abdominal pain, ) severe abdominal pain morphine (Verified Adverse Reaction, Intermediate, Nausea/Vomiting, ) Uncoded Allergies: mycin (Adverse Reaction, Intermediate, 02/07/15) able to take zpac, has stomach ache diarhea Family History Positive for heart disease, hypertension, diabetes in both parents Social History Alcohol Use: Yes (ONE DRINK A DAY) Tobacco Use: Yes Substance Use: Yes (POT) (Angelita Jacobsen) Review of Systems Constitutional: COMPLAINS OF: Fatigue, Weight loss, DENIES: Fever Endocrine: DENIES: Polydipsia Eyes: DENIES: Blurred vision Ears, nose, mouth, throat: DENIES: Hearing loss Respiratory: DENIES: Cough Cardiovascular: DENIES: Chest pain Gastrointestinal: COMPLAINS OF: Abdominal pain, Constipation, Heartburn, DENIES : Black stools, Bloody stools, Nausea, Vomiting Genitourinary: DENIES: Hematuria Musculoskeletal: DENIES: Joint Swelling Integumentary: DENIES: Abnormal pigmentation Hematologic/lymphatic: DENIES: Bruising Neurologic: COMPLAINS OF: Abnormal gait (difficulty walking in last couple months) Psychiatric: DENIES: Confusion (Angelita Jacobsen) GI Exam Vitals I&O Vital Signs Date Time Temp Pulse Resp B/P (MAP) Pulse Ox O2 Delivery O2 Flow Rate FiO2 11/03/17 08:08 98.2 99 17 157/74 (101) 99 11/03/17 04:27 98.2 98 17 148/76 98 11/03/17 04:00 101 11/03/17 04:00 Room Air 11/03/17 04:00 98.2 111 16 140/76 (97) 98 11/03/17 01:30 99.0 100 19 160/82 98 11/03/17 01:30 Room Air 11/03/17 01:15 98.4 100 18 158/72 99 11/03/17 01:00 98.4 95 18 151/71 98 11/03/17 00:21 96 11/03/17 00:00 98.2 99 16 148/67 (94) 100 11/02/17 20:42 98 11/02/17 20:00 98.1 98 16 167/72 (103) 100 11/02/17 19:10 11/02/17 19:05 98.4 98 18 130/76 100 11/02/17 18:26 98.2 98 17 137/63 100 11/02/17 18:11 98.4 101 17 137/63 100 11/02/17 17:00 97.8 98 17 153/65 (94) 99 Room Air 11/02/17 17:00 17 11/02/17 15:29 100 18 140/63 (88) 98 17 154/63 (93) 11/02/17 15:29 100 Room Air 11/02/17 15:12 98.5 96 18 140/63 (88) 100 Room Air 11/02/17 15:12 98 18 11/02/17 15:07 98.5 99 18 140/63 (88) 97 I/O 11/02/17 11/02/17 11/02/17 11/03/17 11/03/17 11/03/17 07:00 15:00 23:00 07:00 15:00 23:00 Intake Total 1815 ml 420 ml Output Total 550 ml Balance 1815 ml -130 ml Intake Oral 0 ml IV Total 1000 ml Packed Cells 400 ml 400 ml Blood Product IV Normal Saline Flush 415 ml 20 ml Output Urine Total 550 ml Bladder Scan Volume Amount 999 ml # Bowel Movements 1 Imaging Last Impressions Chest X-Ray 11/02/17 1526 Signed Impressions: Service Date/Time: Thursday, November 02, 2017 15:35 - CONCLUSION: 1. No acute cardiopulmonary findings. Deven Govea MD Laboratory Test 11/02/17 15:30 11/02/17 16:30 11/02/17 19:51 11/02/17 22:40 Haptoglobin 189 MG/DL Prothrombin Time 11.0 SEC Prothromb Time International Ratio 1.1 RATIO Activated Partial Thromboplast Time 22.6 SEC Blood Urea Nitrogen 15 MG/DL Creatinine 1.21 MG/DL Random Glucose 192 MG/DL Total Protein 7.0 GM/DL Albumin 3.3 GM/DL Calcium Level 9.0 MG/DL Alkaline Phosphatase 90 U/L Aspartate Amino Transf (AST/SGOT) 19 U/L Alanine Aminotransferase (ALT/SGPT) 16 U/L Total Bilirubin 1.2 MG/DL Sodium Level 129 MEQ/L Potassium Level 4.0 MEQ/L Chloride Level 93 MEQ/L Carbon Dioxide Level 23.1 MEQ/L Anion Gap 13 MEQ/L Estimat Glomerular Filtration Rate 62 ML/MIN Iron Level 197 MCG/DL Total Iron Binding Capacity 202 MCG/DL Percent Iron Saturation 97.7 % Vitamin B12 Level 464 PG/ML Folate 1.2 NG/ML White Blood Count 3.9 TH/MM3 Red Blood Count 0.75 MIL/MM3 Hemoglobin 3.4 GM/DL Hematocrit 9.7 % Mean Corpuscular Volume 129.8 FL Mean Corpuscular Hemoglobin 45.0 PG Mean Corpuscular Hemoglobin Concent 34.7 % Red Cell Distribution Width 15.3 % Platelet Count 299 TH/MM3 Mean Platelet Volume 6.5 FL Neutrophils (%) (Auto) 85.4 % Lymphocytes (%) (Auto) 10.3 % Monocytes (%) (Auto) 3.8 % Eosinophils (%) (Auto) 0.2 % Basophils (%) (Auto) 0.3 % Neutrophils # (Auto) 3.3 TH/MM3 Lymphocytes # (Auto) 0.4 TH/MM3 Monocytes # (Auto) 0.2 TH/MM3 Eosinophils # (Auto) 0.0 TH/MM3 Basophils # (Auto) 0.0 TH/MM3 CBC Comment AUTO DIFF Differential Comment AUTO DIFF CONFIRMED Platelet Estimate NORMAL Platelet Morphology Comment NORMAL Basophilic Stippling FAINT Spherocytes OCC Reticulocyte Count 1.2 % Absolute Reticulocyte Count 8.8 MIL/L Hematology Comments Tumor Marker Alpha Fetoprotein 3.6 NG/ML Carcinoembryonic Antigen 5.6 NG/ML CA 19-9 Antigen 5.9 U/ML Urine Color YELLOW Urine Turbidity HAZY Urine pH 5.5 Urine Specific [place] 1.012 Urine Protein TRACE mg/dL Urine Glucose (UA) NEG mg/dL Urine Ketones TRACE mg/dL Urine Occult Blood NEG Urine Nitrite NEG Urine Bilirubin NEG Urine Urobilinogen LESS THAN 2.0 MG/DL Urine Leukocyte Esterase TRACE Urine RBC LESS THAN 1 /hpf Urine WBC 3 /hpf Urine Uric Acid Crystals RARE /hpf Urine Bacteria OCC /hpf Urine Hyaline Casts 6 /lpf Urine Mucus FEW /lpf Microscopic Urinalysis Comment CATH-CULTURE IND Date/Time Source Procedure Growth Status 11/02/17 22:40 Urine Catheterized Urine Urine Culture Pending Received Physical Examination HEENT: PERRL; normocephalic; atraumatic; no jaundice. CHEST: CTA CARDIAC: RRR +murmur ABDOMEN: Soft, nondistended,lower abd TTP; no hepatosplenomegaly; bowel sounds are present in all four quadrants. EXTREMITIES: No clubbing, cyanosis, or edema. SKIN: Normal; no rash; no jaundice. EQUIPMENT OPERATOR/LABORER: No focal deficits; alert and oriented times three. (Angelita Jacobsen [facility]) Assessment and Plan Plan ASSESSMENT - scant BRBPR- this is scant on wipe and intermittent. last colonoscopy 5-[address] Price, polyps found - severe anemia - hgb 3.4 on admission, s/p 2 x PRBC unclear etiology. pt does have intermittent BRBPR but based in hx does not sound like is just from rectal bleeding. denies melena. recommended EGD colonoscopy tomorrow but pt refused, wants to eat. he will agree to procedures done on Wednesday - lower abd pain - intermittent, relieved after sweeney catheter inserted ? urinary retention. unsure if this is GI in nature PLAN - EGD colonoscopy Wednesday - clears - NPO after MN night - [place] night - monitor HH - transfuse as needed - further recs to follow - d/w primary pt seen by myself and Dr Umaña and this note is written on his behalf. (Angelita Jacobsen) Physician Comments Patient seen and examined Agree with above Continue with current supportive care Monitor labs EGD colonoscopy Wednesday (Irwin Umaña MD) Angelita Jacobsen Nov 03, 2017 11:48 Irwin Umaña MD Nov 03, 2017 23:20
--- NOTE | 2017-11-03 12:15 | MB ---
cc: МАРИЯ HERNANDEZ M.D., ERIC DATE OF CONSULTATION 11/03/[address] Cook. REASON FOR CONSULTATION Hematology is consulted to render an opinion regarding patient with severe anemia. HISTORY OF PRESENT ILLNESS The patient is a 57-year-old male with multiple medical problems who presented to the emergency room with complaint of increased weakness and dizziness. He stated he has not been feeling well for the last one week. He had bright red blood per rectum for several days. He stated each time it is about a half cup of blood; however, his last episode of bright red blood per rectum was about five days ago. He denies any abdominal pain. He has had constipation. He has dyspnea on exertion. He has increased weakness and dizziness. He also noted increased pain in his thigh bilaterally over the last 5-6 days. When he presented to the hospital his hemoglobin was noted to be 3.4. Hemoccult blood test, however, was negative. When I saw him he had received 3 units of packed red blood cell transfusion. He is feeling better. His leg pain has resolved. He is feeling a little stronger. He denies ever having a history of anemia. In his chart there is mention of leukemia, however, in talking to patient it does not seem that he has ever had a history of leukemia. He denies any chest pain. He denies any nausea or vomiting. Denies any dysuria or hematuria. PAST MEDICAL HISTORY 1. Takayasu arteritis. 2. Rheumatoid arthritis. 3. Hypertension. 4. Vasculitis. PAST SURGICAL HISTORY 1. Hernia repair. 2. Fem-fem bypass surgery. FAMILY HISTORY Positive for hypertension, coronary artery disease and diabetes. He has two half brothers; one of prostate cancer. He has no children. SOCIAL HISTORY He smoked for about 10 years; currently smokes about 2 cigarettes a day. He has one drink a day. He lives alone. ALLERGIES 1. SULFA DRUGS. 2. CIPROFLOXACIN. 3. IBUPROFEN. 4. MORPHINE. 5. MYCIN. 6. PENICILLIN. MEDICATIONS Current medications: 1. Xanax. 2. Joselin-Colace. 3. Diovan. REVIEW OF SYSTEMS CONSTITUTIONAL: As above. EYES: Negative. EARS, NOSE, AND THROAT: Negative. CARDIOVASCULAR: Denies chest pressure, palpitations. RESPIRATORY: As above. GASTROINTESTINAL: As above. GENITOURINARY: Denies dysuria, hematuria. MUSCULOSKELETAL: As above. HEMATOLOGIC: As above. ENDOCRINE: Negative. DERMATOLOGIC: Negative. NEUROLOGIC: Negative. PSYCHIATRIC: Negative. PHYSICAL EXAMINATION VITAL SIGNS: Temperature 98.2, blood pressure 157/74, O2 saturation 99% on room air. GENERAL: He is alert and oriented x3, in no acute distress. He looks pale. HEENT: Atraumatic, normocephalic. Pupils equal, round and reactive to light. Extraocular muscles intact. No scleral icterus. Oropharynx has dry mucosa, no lesion. NECK: No thyromegaly. No palpable mass. LYMPHATICS: No palpable cervical, clavicular, axillary or inguinal lymph nodes. CARDIOVASCULAR: Regular, S1, S2, no murmur. LUNGS: Clear to auscultation bilaterally. ABDOMEN: Soft, nontender. Could not palpate the liver or spleen. EXTREMITIES: No cyanosis. No clubbing. No significant edema. BACK: No paravertebral tenderness. SKIN: No rash or petechiae. NEUROLOGIC: Nonfocal. LABORATORY DATA WBC 3.9, hemoglobin 3.4, platelet count 299. Iron saturation 97. Total bilirubin 1.2. Haptoglobin 189. MCV 129. Folic acid 1.2. B12 464. ASSESSMENT 1. Severe anemia, unknown chronicity. He has no known history of anemia. He started having symptoms about a week ago. He had a few episodes of bright red blood per rectum. He states each time he passed about a half cup of blood. His last episode however was about five days ago. In the emergency room a hemoccult test was negative. His MCV is very elevated at 129. RDW is normal. His iron saturation is 97. Ferritin level was not done. This does not look like iron deficiency anemia; however, acute blood loss may not cause a drop in the iron study. His folic acid level, however, is quite low. He may have a chronic vitamin deficiency and further drop in the hemoglobin may be due to GI blood loss. At this point I agree with transfusion to keep his hemoglobin above 7. Will check his peripheral smear and a ferritin level. Will start him on folic acid supplement and eventually a B12 supplement. If his hemoglobin does not continue to improve, he may need a bone marrow biopsy for evaluation. I will also check a parvovirus titer but he has no symptoms. 2. Rheumatoid arthritis. He has chronic joint pain. 3. Vasculitis. He has history of Takayasu arteritis. 4. Hypertension. PLAN 1. Proceed with laboratory evaluation as outlined above. 2. Start him on folic acid. 3. Have pathology review peripheral smear. 4. Await GI work-up. 5. Can consider a bone marrow biopsy if his anemia does not improve with folic acid supplement. Thank you, Dr. Cook, for asking me to see this patient. MD STONEY Alvarez/OLIVIA /11:11 AM /11:45 AM NEYDA
[2017-11-03 12:36] LABS: HEMOGLOBIN 6.5 GM/DL (13.0-17.0)
[2017-11-03] MEDS: FOLIC ACID 1 MG TAB PO SCH (12:39)
[2017-11-03] MEDS ORDERED: diphenhydrAMINE HCL 25 MG CAP PO PRN (12:45)
[2017-11-03] MEDS ORDERED: SODIUM CHLOR 0.9% 250 ML INJ 250 ML IV ONE (12:45)
[2017-11-03] MEDS ORDERED: FUROSEMIDE 20 MG/2 ML VIAL IV PUSH ONE (13:00)
[2017-11-03 15:11] LABS: RED BLOOD COUNT 1.74 MIL/MM3 (4.50-5.90)
[2017-11-03 15:12] LABS: MEAN CORPUSCULAR HEMOGLOBIN 37.2 PG (27.0-34.0); MEAN CORPUSCULAR HGB CONC 36.1 % (32.0-36.0); MEAN PLATELET VOLUME 6.5 FL (7.0-11.0); NEUT % 82.3 % (16.0-70.0); PLATELET COUNT 251 TH/MM3 (150-450); RED CELL DISTRIBUTION WIDTH 25.2 % (11.6-17.2)
[2017-11-03 15:13] LABS: AUTOMATED NEUTROPHIL # 3.3 TH/MM3 (1.8-7.7); EOSINOPHIL % 0.4 % (0.0-4.0); LYMPHOCYTE # 0.5 TH/MM3 (1.0-4.8); MONO % 4.3 % (0.0-8.0); MONOCYTE # 0.2 TH/MM3 (0-0.9)
[2017-11-03 16:04] LABS: MAGNESIUM 1.8 MG/DL (1.5-2.5)
[2017-11-03 16:12] LABS: FERRITIN 1126 NG/ML (26-388); FREE T4 1.29 NG/DL (0.76-1.46); LDH SERUM 474 U/L (87-241); PHOSPHORUS 2.9 MG/DL (2.5-4.9)
[2017-11-03 16:30] LABS: OVALOCYTES 1+ (NORMAL)
[2017-11-03 16:48] LABS: HEMOGLOBIN A1C 6.2 % (4.3-6.0)
[2017-11-03] MEDS: VALSARTAN 80 MG TAB PO SCH (20:51)
[2017-11-03] MEDS ORDERED: DOCUSATE SODIUM 50 MG/SENNA 8.6 MG TAB PO SCH (21:00)
[2017-11-03] MEDS ORDERED: SODIUM CHLORIDE 0.9% FLUSH 10 ML FLUSH IV FLUSH SCH (21:00)
[2017-11-03] MEDS ORDERED: ZOLPIDEM TARTRATE 5 MG TAB PO PRN (21:00)
[2017-11-03 21:14] LABS: HEMATOCRIT 28.7 % (39.0-51.0); HEMOGLOBIN 10.3 GM/DL (13.0-17.0)
[2017-11-04] VITALS (14 sets, daily range): BP systolic 104–134; BP diastolic 58–69; PULSE 88–100; RESP 16–18; TEMP 98.2–99.1; O2SAT 97–100
[2017-11-04] MEDS ORDERED: ALPRAZolam 0.25 MG TAB PO ONE (01:30)
[2017-11-04] MEDS ORDERED: PILL SPLITTER OTHER PRN (01:45)
[2017-11-04 05:09] LABS: AUTOMATED NEUTROPHIL # 3.4 TH/MM3 (1.8-7.7); BASOPHIL % 0.2 % (0.0-2.0); EOSINOPHIL % 0.6 % (0.0-4.0); HEMATOCRIT 33.4 % (39.0-51.0); HEMOGLOBIN 12.1 GM/DL (13.0-17.0); LYMPH % 14.7 % (9.0-44.0); LYMPHOCYTE # 0.6 TH/MM3 (1.0-4.8); MEAN CELL VOLUME 89.9 FL (80.0-100.0); MEAN CORPUSCULAR HEMOGLOBIN 32.5 PG (27.0-34.0); MEAN PLATELET VOLUME 6.2 FL (7.0-11.0); MONO % 3.6 % (0.0-8.0); MONOCYTE # 0.2 TH/MM3 (0-0.9); NEUT % 80.9 % (16.0-70.0); PLATELET COUNT 202 TH/MM3 (150-450); RED BLOOD COUNT 3.71 MIL/MM3 (4.50-5.90); WHITE BLOOD COUNT 4.2 TH/MM3 (4.0-11.0)
[2017-11-04 05:23] LABS: MEAN CORPUSCULAR HGB CONC 36.2 % (32.0-36.0)
[2017-11-04 05:47] LABS: ALKALINE PHOSPHATASE 84 U/L (45-117); ALT (GPT) 15 U/L (12-78); AST (GOT) 17 U/L (15-37); BICARBONATE 27.9 MEQ/L (21.0-32.0); BLOOD UREA NITROGEN 11 MG/DL (7-18); CALCIUM 8.1 MG/DL (8.5-10.1); CHLORIDE 94 MEQ/L (98-107); CREATININE 0.98 MG/DL (0.60-1.30); GLOMERULAR FILTRATION RATE 79 ML/MIN (>89); GLUCOSE,RANDOM 172 MG/DL (74-106); MAGNESIUM 1.5 MG/DL (1.5-2.5); PHOSPHORUS 2.9 MG/DL (2.5-4.9); SODIUM (NA) 131 MEQ/L (136-145); TOTAL BILIRUBIN ADULT 2.4 MG/DL (0.2-1.0); TOTAL PROTEIN 6.6 GM/DL (6.4-8.2)
[2017-11-04] MEDS: DOCUSATE SODIUM 50 MG/SENNA 8.6 MG TAB PO SCH ×2 (08:53→21:00)
[2017-11-04] MEDS: SODIUM CHLORIDE 0.9% FLUSH 10 ML FLUSH IV FLUSH SCH ×2 (08:54→23:08)
[2017-11-04] MEDS: FOLIC ACID 1 MG TAB PO SCH (08:54)
--- NOTE | 2017-11-04 09:36 | HHI.GIFU ---
Subjective Remarks Awake, resting in the bed Still notes occasional mild nausea Temp 99.1 Abdominal bloating moderate ([place]) Objective Vitals I&O Vital Signs Date Time Temp Pulse Resp B/P (MAP) Pulse Ox O2 Delivery O2 Flow Rate FiO2 11/04/17 04:14 16 11/04/17 04:00 Room Air 11/04/17 04:00 99.1 97 18 133/69 (90) 99 11/04/17 04:00 93 11/04/17 03:30 98.8 99 18 129/62 99 11/04/17 03:30 98.5 95 17 132/68 97 11/04/17 00:35 99.0 99 17 122/67 99 11/04/17 00:25 98.6 97 17 126/64 99 11/04/17 00:11 98.2 99 18 127/67 98 11/04/17 00:00 98.5 96 16 134/66 (88) 98 11/04/17 00:00 98 11/04/17 00:00 Room Air 11/03/17 22:40 18 11/03/17 20:50 Room Air 11/03/17 20:00 99.2 98 18 131/67 (88) 98 11/03/17 20:00 98 11/03/17 17:25 98.8 100 16 128/63 98 11/03/17 16:42 98.8 95 17 130/63 98 11/03/17 16:41 98.8 101 17 130/63 98 11/03/17 16:08 98.5 98 17 131/60 (83) 99 11/03/17 15:51 96 11/03/17 13:46 98.4 97 17 129/60 99 11/03/17 13:23 98.3 102 16 131/68 99 11/03/17 12:13 98.4 108 17 133/63 (86) 99 11/03/17 11:53 100 I/O 11/03/17 11/03/17 11/03/17 11/04/17 11/04/17 11/04/17 07:00 15:00 23:00 07:00 15:00 23:00 Intake Total 420 ml 500 ml 2710 ml 1577 ml Output Total 550 ml 550 ml 600 ml Balance -130 ml 500 ml 2160 ml 977 ml Intake Oral 0 ml 1000 ml 480 ml Tube Feeding 487 ml Packed Cells 400 ml 800 ml 400 ml Blood Product IV Normal Saline Flush 20 ml 500 ml 910 ml 110 ml Other 100 ml Output Urine Total 550 ml 550 ml 600 ml # Bowel Movements 1 0 0 Laboratory Laboratory Tests Test 11/03/17 11:04 11/03/17 11:14 11/03/17 20:49 11/04/17 04:56 White Blood Count 4.0 4.2 Red Blood Count 1.74 3.71 Hemoglobin 6.5 10.3 12.1 Hematocrit 18.0 28.7 33.4 Mean Corpuscular Volume 103.0 89.9 Mean Corpuscular Hemoglobin 37.2 32.5 Mean Corpuscular Hemoglobin Concent 36.1 36.2 Red Cell Distribution Width 25.2 21.0 Platelet Count 251 202 Mean Platelet Volume 6.5 6.2 Neutrophils (%) (Auto) 82.3 80.9 Lymphocytes (%) (Auto) 13.0 14.7 Monocytes (%) (Auto) 4.3 3.6 Eosinophils (%) (Auto) 0.4 0.6 Basophils (%) (Auto) 0.0 0.2 Neutrophils # (Auto) 3.3 3.4 Lymphocytes # (Auto) 0.5 0.6 Monocytes # (Auto) 0.2 0.2 Eosinophils # (Auto) 0.0 0.0 Basophils # (Auto) 0.0 0.0 CBC Comment AUTO DIFF AUTO DIFF Differential Comment AUTO DIFF CONFIRMED AUTO DIFF CONFIRMED Platelet Estimate NORMAL Platelet Morphology Comment NORMAL Ovalocytes 1+ Blood Smear Pathologist Review Hemoglobin A1c 6.2 Blood Urea Nitrogen 11 Creatinine 0.98 Random Glucose 172 Total Protein 6.6 Albumin 3.0 Calcium Level 8.1 Phosphorus Level 2.9 Magnesium Level 1.5 Alkaline Phosphatase 84 Aspartate Amino Transf (AST/SGOT) 17 Alanine Aminotransferase (ALT/SGPT) 15 Total Bilirubin 2.4 Sodium Level 131 Potassium Level 3.6 Chloride Level 94 Carbon Dioxide Level 27.9 Anion Gap 9 Estimat Glomerular Filtration Rate 79 Date/Time Source Procedure Growth Status 11/02/17 22:40 Urine Catheterized Urine Urine Culture - Preliminary RESULTS PENDING Resulted Imaging Last Impressions Chest X-Ray 11/02/17 1526 Signed Impressions: Service Date/Time: Thursday, November 02, 2017 15:35 - CONCLUSION: 1. No acute cardiopulmonary findings. Deven Govea MD Physical Exam HEENT: Pupils round and reactive to light; normocephalic; atraumatic; no jaundice. Thin NECK: Neck is supple, no JVD, no lymphadenopathy. CHEST: Chest is clear without rhonchi CARDIAC: Regular rate and rhythm ABDOMEN: Soft, moderate bloating; bowel sounds are present in all four quadrants. EXTREMITIES: No clubbing, cyanosis, or edema. SKIN: Fitz; no rash; no jaundice. 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 ([place]) Assessment and Plan Plan ASSESSMENT history - scant BRBPR- this is scant on wipe and intermittent. last colonoscopy 5-[address] Price, polyps found - severe anemia - hgb 3.4 on admission, s/p 2 x PRBC unclear etiology. pt does have intermittent BRBPR but based in hx does not sound like is just from rectal bleeding. denies melena. Still has some mild vague symptoms hemoglobin stable at 12.1. Okay for EGD and colonoscopy tomorrow patient - lower abd pain - intermittent, relieved after sweeney catheter inserted ? urinary retention. unsure if this is GI in nature PLAN - EGD colonoscopy Wednesday - clears - NPO after MN night - Mag citrate night X 2 - monitor HH - transfuse as needed - further recs to follow pt seen by myself and Dr Umaña and this note is written on his behalf. ([place]) Physician Comments Patient was seen and examined Agree with above Continue with current supportive care Monitor labs Plan for an EGD and a colonoscopy tomorrow (Irwin Umaña MD) [place] Nov 04, 2017 09:36 Irwin Umaña MD Nov 04, 2017 22:44
[2017-11-04] MEDS ORDERED: CYANOCOBALAMIN 1000 MCG/ML VIAL IM ONE (12:15)
--- NOTE | 2017-11-04 13:59 | PD.ONC.PN ---
Subjective Subjective Remarks Afebrile Patient reports he has had a difficult time sleeping Overall feels much improved since getting transfusions Scope planned for tomorrow Objective Data Date Time Temp Pulse Resp B/P (MAP) Pulse Ox O2 Delivery O2 Flow Rate FiO2 11/04/17 08:08 98.4 93 18 133/64 (87) 100 11/04/17 04:14 16 11/04/17 04:00 Room Air 11/04/17 04:00 99.1 97 18 133/69 (90) 99 11/04/17 04:00 93 11/04/17 03:30 98.8 99 18 129/62 99 11/04/17 03:30 98.5 95 17 132/68 97 11/04/17 00:35 99.0 99 17 122/67 99 11/04/17 00:25 98.6 97 17 126/64 99 11/04/17 00:11 98.2 99 18 127/67 98 11/04/17 00:00 98.5 96 16 134/66 (88) 98 11/04/17 00:00 98 11/04/17 00:00 Room Air 11/03/17 22:40 18 11/03/17 20:50 Room Air 11/03/17 20:00 99.2 98 18 131/67 (88) 98 11/03/17 20:00 98 11/03/17 17:25 98.8 100 16 128/63 98 11/03/17 16:42 98.8 95 17 130/63 98 11/03/17 16:41 98.8 101 17 130/63 98 11/03/17 16:08 98.5 98 17 131/60 (83) 99 11/03/17 15:51 96 11/03/17 13:46 98.4 97 17 129/60 99 11/04/17 11/04/17 11/04/17 07:00 15:00 23:00 Intake Total 1577 ml Output Total 600 ml Balance 977 ml Result Diagram: 11/04/17 0456 11/04/17 0456 Laboratory Results Laboratory Tests Test 11/03/17 20:49 11/04/17 04:56 Hemoglobin 10.3 GM/DL 12.1 GM/DL Hematocrit 28.7 % 33.4 % White Blood Count 4.2 TH/MM3 Red Blood Count 3.71 MIL/MM3 Mean Corpuscular Volume 89.9 FL Mean Corpuscular Hemoglobin 32.5 PG Mean Corpuscular Hemoglobin Concent 36.2 % Red Cell Distribution Width 21.0 % Platelet Count 202 TH/MM3 Mean Platelet Volume 6.2 FL Neutrophils (%) (Auto) 80.9 % Lymphocytes (%) (Auto) 14.7 % Monocytes (%) (Auto) 3.6 % Eosinophils (%) (Auto) 0.6 % Basophils (%) (Auto) 0.2 % Neutrophils # (Auto) 3.4 TH/MM3 Lymphocytes # (Auto) 0.6 TH/MM3 Monocytes # (Auto) 0.2 TH/MM3 Eosinophils # (Auto) 0.0 TH/MM3 Basophils # (Auto) 0.0 TH/MM3 CBC Comment AUTO DIFF Differential Comment AUTO DIFF CONFIRMED Blood Urea Nitrogen 11 MG/DL Creatinine 0.98 MG/DL Random Glucose 172 MG/DL Total Protein 6.6 GM/DL Albumin 3.0 GM/DL Calcium Level 8.1 MG/DL Phosphorus Level 2.9 MG/DL Magnesium Level 1.5 MG/DL Alkaline Phosphatase 84 U/L Aspartate Amino Transf (AST/SGOT) 17 U/L Alanine Aminotransferase (ALT/SGPT) 15 U/L Total Bilirubin 2.4 MG/DL Sodium Level 131 MEQ/L Potassium Level 3.6 MEQ/L Chloride Level 94 MEQ/L Carbon Dioxide Level 27.9 MEQ/L Anion Gap 9 MEQ/L Estimat Glomerular Filtration Rate 79 ML/MIN Culture Results Microbiology Date/Time Source Procedure Growth Status 11/02/17 22:40 Urine Catheterized Urine Urine Culture - Final NO GROWTH IN 48 HOURS. Complete Administered Medications Medications (Trade) Dose Ordered Sig/Kwadwo Route PRN Reason Start Time Stop Time Status Last Admin Dose Admin Sodium Chloride (NS Flush) 2 ml BID IV FLUSH 11/02/17 21:00 11/04/17 08:54 Ondansetron HCl (Zofran Inj) 4 mg Q6H PRN IVP NAUSEA OR VOMITING 11/02/17 17:45 11/03/17 02:22 Senna/Docusate Sodium (Joselin-Colace) 1 tab BID PO 11/02/17 21:00 11/04/17 08:53 Valsartan (Diovan) 80 mg HS PO 11/02/17 21:00 11/03/17 20:51 Folic Acid (Folate) 1 mg DAILY PO 11/03/17 12:30 11/04/17 08:54 Oxycodone HCl (Roxicodone) 15 mg Q6H PRN PO pain >5 11/04/17 03:00 11/04/17 08:53 Objective Remarks GENERAL: Chronically ill appearing older male resting in bed in no obvious distress SKIN: Warm and dry. Pale appearing HEAD: Normocephalic. EYES: No injection or drainage. NECK: Supple, trachea midline. CARDIOVASCULAR: Regular rate and rhythm without murmurs. RESPIRATORY: Breath sounds equal bilaterally. No accessory muscle use. GASTROINTESTINAL: Abdomen soft, non-tender, nondistended. EXTREMITIES: No cyanosis NEUROLOGICAL: No obvious focal deficit. Awake, alert, and oriented x3. Assessment/Plan Problem List: (1) Symptomatic anemia ICD Codes: D64.9 - Anemia, unspecified Plan: -- Transfuse to keep hemoglobin greater than 7 -- Await results of colonoscopy -- Will consider bone marrow biopsy if hemoglobin is not improved with B12 and folic acid -- Parvovirus pending Hx/Workup: Patient reports he has had increased weakness and not feeling well over the past week. He did report bright red blood per rectum. On admission his hemoglobin was 3.4. He has no known history of anemia. Interestingly a Hemoccult test was negative on admission. Plan 1. Monitor CBC and await peripheral smear 2. Patient has had no further rectal bleeding 3. Colonoscopy tomorrow 4. Give B12 1000 g 1 dose 5. Plan to transfuse for hemoglobin less than 7 Attending Statement The exam, history, and the medical decision-making described in the above note were completed with the assistance of the mid-level provider. I reviewed and agree with the findings presented. I attest that I had a [id number] encounter with the patient on the same day, and personally performed and documented my assessment and findings in the medical record. Feels better after the blood transfusion. Hgb trended up with 5U PRBC transfusion. Await colonoscopy/EGD tomorrow. Continue folic acid. Start B12 supplement. Monitor CBC. Yumiko Messina Nov 04, 2017 13:59 Solis Rosas MD Nov 04, 2017 16:21
--- NOTE | 2017-11-04 14:26 | HHI.PR ---
Subjective Remarks No abdominal pain nausea or vomiting, patient stated he didn't have a bowel movement in 7 days, but positive flatus Objective Vitals Vital Signs Date Time Temp Pulse Resp B/P (MAP) Pulse Ox O2 Delivery O2 Flow Rate FiO2 11/04/17 12:08 98.6 94 18 110/58 (75) 100 11/04/17 08:08 98.4 93 18 133/64 (87) 100 11/04/17 04:14 16 11/04/17 04:00 Room Air 11/04/17 04:00 99.1 97 18 133/69 (90) 99 11/04/17 04:00 93 11/04/17 03:30 98.8 99 18 129/62 99 11/04/17 03:30 98.5 95 17 132/68 97 11/04/17 00:35 99.0 99 17 122/67 99 11/04/17 00:25 98.6 97 17 126/64 99 11/04/17 00:11 98.2 99 18 127/67 98 11/04/17 00:00 98.5 96 16 134/66 (88) 98 11/04/17 00:00 98 11/04/17 00:00 Room Air 11/03/17 22:40 18 11/03/17 20:50 Room Air 11/03/17 20:00 99.2 98 18 131/67 (88) 98 11/03/17 20:00 98 11/03/17 17:25 98.8 100 16 128/63 98 11/03/17 16:42 98.8 95 17 130/63 98 11/03/17 16:41 98.8 101 17 130/63 98 11/03/17 16:08 98.5 98 17 131/60 (83) 99 11/03/17 15:51 96 I/O 11/03/17 11/03/17 11/03/17 11/04/17 11/04/17 11/04/17 07:00 15:00 23:00 07:00 15:00 23:00 Intake Total 420 ml 500 ml 2710 ml 1577 ml Output Total 550 ml 550 ml 600 ml Balance -130 ml 500 ml 2160 ml 977 ml Intake Oral 0 ml 1000 ml 480 ml Tube Feeding 487 ml Packed Cells 400 ml 800 ml 400 ml Blood Product IV Normal Saline Flush 20 ml 500 ml 910 ml 110 ml Other 100 ml Output Urine Total 550 ml 550 ml 600 ml # Bowel Movements 1 0 0 Result Diagram: 11/04/176 11/04/176 Objective Remarks GENERAL: This is a well-nourished, well-developed patient, in no apparent distress. SKIN: No rashes, warm and dry HEAD: Atraumatic. Normocephalic. EYES: Pupils equal round and reactive. Extraocular motions intact. No scleral icterus. ENT: Nose without bleeding, or drainage, Airway patent. NECK: Trachea midline. Supple CARDIOVASCULAR: Regular rate and rhythm without murmurs, gallops, or rubs. RESPIRATORY: Fair air entry bilaterally. No wheezes, rales, or rhonchi. GASTROINTESTINAL: Abdomen soft, non-tender, nondistended. Positive tympany, Positive bowel sounds MUSCULOSKELETAL: Extremities without clubbing, cyanosis, or edema. Pedal pulses appreciated NEUROLOGICAL: Awake and alert. Moves all extremity. Normal speech.no focal neurological deficit A/P Problem List: (1) Symptomatic anemia ICD Code: D64.9 - Anemia, unspecified (2) Anemia ICD Code: D64.9 - Anemia, unspecified Status: Acute Assessment and Plan 11/04: Hemoglobin improved to 12.1, EGD planned on Wednesday, monitor CBC 57 years with Symptomatic anemia GI bleeding Transfuse 3 units PRBC Consult GI for evaluation for possible Panendoscopy Consult hematology,as patient with a h/o leukemia Check iron study/haptoglobin/reticulocyte count/B-12 and folate Serial H&H monitoring and hold aspirin PPI Hypertension Resume outpatient medications Mild hyponatremia Monitor electrolytes Constipation secondary to narcotic use Stool softener HAS HX OF PVOD/PAD WITH HX OF BL FEM-POP BYPASS SURGERY NONCOMPLIANCE GAIT INSTABILITY -WEAKNESS- CONSULT PT AND OT DVT prophylaxis: Chemical anti-prophylaxis is contraindicated GI prophylaxis: PPI Problem Qualifiers (1) Anemia: Qualified Codes: D63.8 - Anemia in other chronic diseases classified elsewhere Angela Krueger MD Nov 04, 2017 14:26
[2017-11-04] MEDS ORDERED: MAGNESIUM CITRATE SOLN 300 ML BTL PO ONE ×2 (16:00→18:00)
[2017-11-04 16:29] LABS: HEMOGLOBIN A1C 6.9 % (4.3-6.0)
[2017-11-04 21:40] LABS: HEMATOCRIT 32.6 % (39.0-51.0); HEMOGLOBIN 11.5 GM/DL (13.0-17.0)
[2017-11-04] MEDS: VALSARTAN 80 MG TAB PO SCH (23:10)
[2017-11-04] MEDS: ONDANSETRON HCL 4 MG/2 ML VIAL IVP PRN (23:11)
[2017-11-05] VITALS (8 sets, daily range): BP systolic 111–156; BP diastolic 57–77; PULSE 90–101; RESP 16–21; TEMP 98.2–99; O2SAT 97–100
[2017-11-05] MEDS ORDERED: CHLORHEXIDINE GLUCONATE 2 % 1 PACK (2 CLOTHS) TOPICAL PRN (07:00)
[2017-11-05] MEDS ORDERED: SODIUM CHLORID 0.9% 500 ML IV PRN (07:00)
[2017-11-05] MEDS ORDERED: LACTATED RINGER'S 1000 ML IV PRN (07:00)
[2017-11-05] MEDS ORDERED: POVIDONE IODINE 5% (ANTISEPSIS KIT) 4 APPLICATIONS EACH NARE PRN (07:00)
[2017-11-05] MEDS ORDERED: METOPROLOL TARTRATE 25 MG TAB PO PRN (07:00)
[2017-11-05 08:10] LABS: AUTOMATED NEUTROPHIL # 2.9 TH/MM3 (1.8-7.7); BASOPHIL % 0.1 % (0.0-2.0); EOSINOPHIL % 0.4 % (0.0-4.0); HEMATOCRIT 29.1 % (39.0-51.0); LYMPH % 14.8 % (9.0-44.0); LYMPHOCYTE # 0.6 TH/MM3 (1.0-4.8); MEAN CELL VOLUME 92.1 FL (80.0-100.0); MEAN CORPUSCULAR HEMOGLOBIN 31.8 PG (27.0-34.0); MEAN CORPUSCULAR HGB CONC 34.5 % (32.0-36.0); MEAN PLATELET VOLUME 6.3 FL (7.0-11.0); MONO % 6.7 % (0.0-8.0); MONOCYTE # 0.2 TH/MM3 (0-0.9); PLATELET COUNT 173 TH/MM3 (150-450); RED BLOOD COUNT 3.15 MIL/MM3 (4.50-5.90); RED CELL DISTRIBUTION WIDTH 22.8 % (11.6-17.2); WHITE BLOOD COUNT 3.7 TH/MM3 (4.0-11.0)
[2017-11-05 09:39] LABS: HYPERSEGMENTED POLYS 1+ (NORMAL)
[2017-11-05] MEDS ORDERED: MIDAZOLAM HCL 2 MG/2 ML VIAL ONE (11:58)
--- NOTE | 2017-11-05 11:59 | PD.PROCEDR ---
GI Procedure PROCEDURE PERFORMED EGD with biopsy followed by colonoscopy INDICATION FOR PROCEDURE Anemia, rectal bleeding, history of polyps PROCEDURE: The procedure, risks and benefits were discussed with Mr. Alvarez and informed consent was obtained. Anesthesia sedated him with Diprivan. He was placed in the left lateral decubitus position. EGD: The Pentax videoscope was introduced through the oropharynx and advanced to the second portion of the duodenum under direct visualization. Retroflexion was performed in the stomach. FINDINGS: Esophagus this was normal The stomach there was patchy erythema in the antrum but no ulcerations no erosions no blood or bleeding antral biopsies were taken further evaluation the rest of the stomach was unremarkable The duodenum there was a small nodule in the duodenal bulb this was biopsied otherwise it was unremarkable Colonoscopy: The Pentax videoscope was introduced through the rectum and advanced to cecum where the ileocecal valve and appendiceal orifice were identified. Retroflexion was performed in the rectum. Colonic prep was good FINDINGS: Colonic withdrawal time about 6 minutes as the scope was slowly withdrawn colonic mucosa was carefully inspected this was noted to be unremarkable and within normal limits all the way through the patient was noted to have mild diverticulosis of the sigmoid region retroflexion was unremarkable so as rectal examination ESTIMATED BLOOD LOSS: None SPECIMENS REMOVED: Antral and duodenal biopsies COMPLICATIONS: None IMPRESSION: Mild gastritis Small duodenal nodule Diverticulosis PLAN: Await biopsies Continue supportive care Monitor labs and transfuse if needed Colonoscopy in 5 years Irwin Umaña MD Nov 05, 2017 11:59
[2017-11-05] MEDS ORDERED: LIDOCAINE HCL 1% PF 5 ML SYRINGE OTHER ONE (12:00)
[2017-11-05] MEDS ORDERED: PHENYLEPH/NS 1000 MCG/10 ML SYR IV ONE (12:00)
[2017-11-05] MEDS ORDERED: GLYCOPYRROLATE 1 MG/5 ML SYRINGE IV PUSH ONE (12:00)
[2017-11-05] MEDS ORDERED: PROPOFOL 200 MG/20 ML AMP IV ONE (12:00)
--- NOTE | 2017-11-05 12:40 | HHI.PR ---
Subjective Remarks resting in bed, going for EGD colonoscopy today for his anemia Afebrile Objective Vitals Vital Signs Date Time Temp Pulse Resp B/P (MAP) Pulse Ox O2 Delivery O2 Flow Rate FiO2 11/05/17 12:00 97.9 102 20 106/66 (79) 100 11/05/17 08:06 99.0 92 21 119/59 (79) 98 11/05/17 08:00 90 11/05/17 08:00 Room Air 11/05/17 04:00 98.7 93 16 111/63 (79) 98 11/05/17 00:00 98.2 97 16 119/57 (77) 99 11/05/17 00:00 Room Air 11/04/17 23:47 99 11/04/17 20:00 Room Air 11/04/17 20:00 98.7 100 16 104/60 (75) 97 11/04/17 19:44 100 11/04/17 16:08 98.6 94 18 118/58 (78) 100 I/O 11/04/17 11/04/17 11/04/17 11/05/17 11/05/17 11/05/17 07:00 15:00 23:00 07:00 15:00 23:00 Intake Total 1577 ml 340 ml 240 ml 200 ml Output Total 600 ml 600 ml 0 ml Balance 977 ml -260 ml 240 ml 200 ml Intake Oral 480 ml 340 ml 240 ml Tube Feeding 487 ml Packed Cells 400 ml Blood Product IV Normal Saline Flush 110 ml Other 100 ml 200 ml Output Urine Total 600 ml 600 ml 0 ml # Bowel Movements 0 0 0 Result Diagram: 11/05/17 0714 11/04/17 0456 Objective Remarks GENERAL: This is a well-nourished, well-developed patient, in no apparent distress. SKIN: No rashes, warm and dry HEAD: Atraumatic. Normocephalic. EYES: Pupils equal round and reactive. Extraocular motions intact. No scleral icterus. ENT: Nose without bleeding, or drainage, Airway patent. NECK: Trachea midline. Supple CARDIOVASCULAR: Regular rate and rhythm without murmurs, gallops, or rubs. RESPIRATORY: Fair air entry bilaterally. No wheezes, rales, or rhonchi. GASTROINTESTINAL: Abdomen soft, non-tender, nondistended. Positive tympany, Positive bowel sounds MUSCULOSKELETAL: Extremities without clubbing, cyanosis, or edema. Pedal pulses appreciated NEUROLOGICAL: Awake and alert. Moves all extremity. Normal speech.no focal neurological deficit A/P Problem List: (1) Symptomatic anemia ICD Code: D64.9 - Anemia, unspecified (2) Anemia ICD Code: D64.9 - Anemia, unspecified Status: Acute Assessment and Plan 11/04: Hemoglobin improved to 12.1, EGD planned on Wednesday, monitor CBC 11/05: Hemoglobin still stable at 10,patient going for EGD colonoscopy today 57 years with Symptomatic anemia GI bleeding Transfuse 3 units PRBC Consult GI for evaluation for possible Panendoscopy Consult hematology,as patient with a h/o leukemia Check iron study/haptoglobin/reticulocyte count/B-12 and folate Serial H&H monitoring and hold aspirin PPI Hypertension Resume outpatient medications Mild hyponatremia Monitor electrolytes Constipation secondary to narcotic use Stool softener 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
[2017-11-05] MEDS: SODIUM CHLORIDE 0.9% FLUSH 10 ML FLUSH IV FLUSH SCH ×2 (13:00→21:47)
[2017-11-05] MEDS: FOLIC ACID 1 MG TAB PO SCH (13:00)
[2017-11-05] MEDS: DOCUSATE SODIUM 50 MG/SENNA 8.6 MG TAB PO SCH ×2 (13:00→21:00)
--- NOTE | 2017-11-05 13:45 | PD.ONC.PN ---
Subjective Subjective Remarks Afebrile overnight. Patient resting in bed, just back from colonoscopy. Coloscopy did not show any active bleeding. asking for a xanax to take to help him sleep at night. Objective Data Date Time Temp Pulse Resp B/P (MAP) Pulse Ox O2 Delivery O2 Flow Rate FiO2 11/05/17 12:00 97.9 102 20 106/66 (79) 100 11/05/17 08:06 99.0 92 21 119/59 (79) 98 11/05/17 08:00 90 11/05/17 08:00 Room Air 11/05/17 04:00 98.7 93 16 111/63 (79) 98 11/05/17 00:00 98.2 97 16 119/57 (77) 99 11/05/17 00:00 Room Air 11/04/17 23:47 99 11/04/17 20:00 Room Air 11/04/17 20:00 98.7 100 16 104/60 (75) 97 11/04/17 19:44 100 11/04/17 16:08 98.6 94 18 118/58 (78) 100 11/05/17 11/05/17 11/05/17 07:00 15:00 23:00 Intake Total 240 ml 200 ml Output Total 0 ml Balance 240 ml 200 ml Result Diagram: 11/05/17 0714 11/04/17 0456 Laboratory Results Laboratory Tests Test 11/04/17 19:53 11/05/17 07:14 Hemoglobin 11.5 GM/DL 10.0 GM/DL Hematocrit 32.6 % 29.1 % White Blood Count 3.7 TH/MM3 Red Blood Count 3.15 MIL/MM3 Mean Corpuscular Volume 92.1 FL Mean Corpuscular Hemoglobin 31.8 PG Mean Corpuscular Hemoglobin Concent 34.5 % Red Cell Distribution Width 22.8 % Platelet Count 173 TH/MM3 Mean Platelet Volume 6.3 FL Neutrophils (%) (Auto) 78.0 % Lymphocytes (%) (Auto) 14.8 % Monocytes (%) (Auto) 6.7 % Eosinophils (%) (Auto) 0.4 % Basophils (%) (Auto) 0.1 % Neutrophils # (Auto) 2.9 TH/MM3 Lymphocytes # (Auto) 0.6 TH/MM3 Monocytes # (Auto) 0.2 TH/MM3 Eosinophils # (Auto) 0.0 TH/MM3 Basophils # (Auto) 0.0 TH/MM3 CBC Comment AUTO DIFF Differential Comment AUTO DIFF CONFIRMED Hypersegmented Polys 1+ Platelet Estimate NORMAL Platelet Morphology Comment NORMAL Culture Results Microbiology Date/Time Source Procedure Growth Status 11/02/17 22:40 Urine Catheterized Urine Urine Culture - Final NO GROWTH IN 48 HOURS. Complete Administered Medications Medications (Trade) Dose Ordered Sig/Kwadwo Route PRN Reason Start Time Stop Time Status Last Admin Dose Admin Sodium Chloride (NS Flush) 2 ml BID IV FLUSH 11/02/17 21:00 11/05/17 13:00 Ondansetron HCl (Zofran Inj) 4 mg Q6H PRN IVP NAUSEA OR VOMITING 11/02/17 17:45 11/04/17 23:11 Senna/Docusate Sodium (Joselin-Colace) 1 tab BID PO 11/02/17 21:00 11/05/17 13:00 Valsartan (Diovan) 80 mg HS PO 11/02/17 21:00 11/04/17 23:10 Folic Acid (Folate) 1 mg DAILY PO 11/03/17 12:30 11/05/17 13:00 Oxycodone HCl (Roxicodone) 15 mg Q6H PRN PO pain >5 11/04/17 03:00 11/05/17 13:00 Objective Remarks GENERAL: Middle aged male, sitting up in bed SKIN: Warm and dry. HEAD: Normocephalic. EYES: No injection or drainage. NECK: Supple, trachea midline. CARDIOVASCULAR: Regular rate and rhythm RESPIRATORY: Breath sounds equal bilaterally. No accessory muscle use. GASTROINTESTINAL: Abdomen soft, non-tender, nondistended. EXTREMITIES: No cyanosis NEUROLOGICAL: No obvious focal deficit. Awake, alert, and oriented x3. Assessment/Plan Problem List: (1) Symptomatic anemia ICD Codes: D64.9 - Anemia, unspecified Plan: -- Transfuse to keep hemoglobin greater than 7 --colonoscopy shows gastritis and duodenal nodule. -- Will consider bone marrow biopsy if hemoglobin is not improved with B12 and folic acid -- Parvovirus pending ++reported h/o BRBPR Assessment 57y/o male admitted with weakness/dizziness, found to have severe anemia. h/o Takayasu arteritis. Rheumatoid arthritis. Hypertension. Vasculitis. Plan 1. continue B12/folate 2. monitor hemoglobin. Attending Statement The exam, history, and the medical decision-making described in the above note were completed with the assistance of the mid-level provider. I reviewed and agree with the findings presented. I attest that I had a [id number] encounter with the patient on the same day, and personally performed and documented my assessment and findings in the medical record. Anxious about colonoscopy. No abdominal pain. No BRBPR. Hgb stable. Await GI w/u. Continue B!2/Folate. Monitor CBC. Patricia Fuchs Nov 05, 2017 13:45 Solis Rosas MD Nov 05, 2017 18:00
[2017-11-05] MEDS ORDERED: ALPRAZolam 0.5 MG TAB PO PRN (18:45)
[2017-11-05] MEDS: VALSARTAN 80 MG TAB PO SCH (21:45)
[2017-11-06] VITALS: BP 130/63; PULSE 84; PULSE 86; RESP 18; TEMP 98.7; O2SAT 99
[2017-11-06 04:00] VITALS: BP 140/68; PULSE 85; RESP 18; TEMP 98.9; O2SAT 99
[2017-11-06 07:57] LABS: HEMOGLOBIN 9.7 GM/DL (13.0-17.0); MEAN CELL VOLUME 92.1 FL (80.0-100.0); MEAN CORPUSCULAR HEMOGLOBIN 31.8 PG (27.0-34.0); MEAN CORPUSCULAR HGB CONC 34.5 % (32.0-36.0); MEAN PLATELET VOLUME 6.3 FL (7.0-11.0); PLATELET COUNT 173 TH/MM3 (150-450); RED BLOOD COUNT 3.04 MIL/MM3 (4.50-5.90); WHITE BLOOD COUNT 3.5 TH/MM3 (4.0-11.0)
[2017-11-06 08:00] VITALS: PULSE 80
[2017-11-06 08:07] VITALS: BP 150/71; PULSE 86; RESP 21; TEMP 98.7; O2SAT 99
[2017-11-06] MEDS ORDERED: CYANOCOBALAMIN 1,000 MCG TAB PO SCH (09:00)
[2017-11-06] MEDS: SODIUM CHLORIDE 0.9% FLUSH 10 ML FLUSH IV FLUSH SCH (09:14)
[2017-11-06] MEDS: DOCUSATE SODIUM 50 MG/SENNA 8.6 MG TAB PO SCH (09:14)
[2017-11-06] MEDS: FOLIC ACID 1 MG TAB PO SCH (09:14)
[2017-11-06] MEDS ORDERED: VITA10002 PO (09:15)
[2017-11-06] MEDS ORDERED: FOLI1TAB6 PO (09:15)
[2017-11-06 12:06] VITALS: BP 152/73; PULSE 90; RESP 21; TEMP 98.5; O2SAT 99
--- NOTE | 2017-11-06 18:36 | HHI.DS ---
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 His had significant leg cramping. Patient also reported episode of dizziness as well as decreased appetite over the past several days. Patient also reported episode of bright red blood per rectum with last episode 4 days ago. However over the past few days patient has reported constipation and abdominal pain. He is been followed by Dr. Ross for his chronic arthritis was ordered some laboratory work, and patient was found to have low hemoglobin for which he was referred to the emergency department. He also reported shortness of breath however denies any chest pain. He has no hemoptysis or hematuria. H&H in the ED was 3.4/9.7 CBC/BMP: 11/06/17 0728 11/04/17 0456 Significant Findings Laboratory Tests Test 11/03/17 20:49 11/04/17 04:56 11/04/17 19:53 11/05/17 07:14 Hemoglobin 10.3 GM/DL (13.0-17.0) 12.1 GM/DL (13.0-17.0) 11.5 GM/DL (13.0-17.0) 10.0 GM/DL (13.0-17.0) Hematocrit 28.7 % (39.0-51.0) 33.4 % (39.0-51.0) 32.6 % (39.0-51.0) 29.1 % (39.0-51.0) Red Blood Count 3.71 MIL/MM3 (4.50-5.90) 3.15 MIL/MM3 (4.50-5.90) Mean Corpuscular Hemoglobin Concent 36.2 % (32.0-36.0) Red Cell Distribution Width 21.0 % (11.6-17.2) 22.8 % (11.6-17.2) Mean Platelet Volume 6.2 FL (7.0-11.0) 6.3 FL (7.0-11.0) Neutrophils (%) (Auto) 80.9 % (16.0-70.0) 78.0 % (16.0-70.0) Lymphocytes # (Auto) 0.6 TH/MM3 (1.0-4.8) 0.6 TH/MM3 (1.0-4.8) Random Glucose 172 MG/DL (74-106) Albumin 3.0 GM/DL (3.4-5.0) Calcium Level 8.1 MG/DL (8.5-10.1) Total Bilirubin 2.4 MG/DL (0.2-1.0) Sodium Level 131 MEQ/L (136-145) Chloride Level 94 MEQ/L (98-107) Estimat Glomerular Filtration Rate 79 ML/MIN (>89) White Blood Count 3.7 TH/MM3 (4.0-11.0) Hypersegmented Polys 1+ (NORMAL) Test 11/06/17 07:28 White Blood Count 3.5 TH/MM3 (4.0-11.0) Red Blood Count 3.04 MIL/MM3 (4.50-5.90) Hemoglobin 9.7 GM/DL (13.0-17.0) Hematocrit 28.0 % (39.0-51.0) Red Cell Distribution Width 25.0 % (11.6-17.2) Mean Platelet Volume 6.3 FL (7.0-11.0) PE at Discharge GENERAL: This is a well-nourished, well-developed patient, in no apparent distress. SKIN: No rashes, warm and dry HEAD: Atraumatic. Normocephalic. EYES: Pupils equal round and reactive. Extraocular motions intact. No scleral icterus. ENT: Nose without bleeding, or drainage, Airway patent. NECK: Trachea midline. Supple CARDIOVASCULAR: Regular rate and rhythm without murmurs, gallops, or rubs. RESPIRATORY: Fair air entry bilaterally. No wheezes, rales, or rhonchi. GASTROINTESTINAL: Abdomen soft, non-tender, nondistended. Positive tympany, Positive bowel sounds MUSCULOSKELETAL: Extremities without clubbing, cyanosis, or edema. Pedal pulses appreciated NEUROLOGICAL: Awake and alert. Moves all extremity. Normal speech.no focal neurological deficit Hospital Course Structures old male admitted for symptomatic anemia GI bleed, he had transfused 3 units of packed red blood cells, GI consulted as well as hematology considering history of leukemia, iron study haptoglobin reticulocyte count has been done to workup for hemolysis versus iron deficiency anemia patient was found to have mixed chronic disease with some iron deficiency, EGD and colonoscopy revealed only diverticulosis, hemoglobin on day of discharge 9.7 still stable, patient cleared by hematology and GI to be discharged and followed up as an outpatient Pt Condition on Discharge: Fair Discharge Disposition: Discharge Home Discharge Time: > 30 minutes Discharge Instructions DIET: Follow Instructions for: Heart Healthy Diet, Diabetic Diet Activities you can perform: Weight Bearing as Justice Follow up Referrals: Appointment for Follow Up @ GASTROENTEROLOGY Gastroenterology - 2 Weeks with Irwin Umaña MD New Medications: Cyanocobalamin (Vitamin B-12) 1,000 Mcg Tab 1000 MCG PO DAILY for anemia, #30 TAB Folic Acid (Folic Acid) 1 Mg Tablet 1 MG PO DAILY for anemia, #30 TAB Continued Medications: Aspirin (Aspirin) 81 Mg Chew 81 MG PO HS, TAB 0 Refills Oxycodone (Oxycodone) 15 Mg Tab 15 MG PO Q6HR for Pain Management, TAB 0 Refills Valsartan (Diovan) 80 Mg Tab 80 MG PO HS, #30 TAB 0 Refills Angela Krueger MD Nov 06, 2017 18:36
[2017-11-06 19:52] LABS: PARVOVIRUS B19 IGG 0.7; PARVOVIRUS B19 IGM LESS THAN 0.1 index (())
== END 2017-11-06 14:45 | disposition home or self-care (01) | DRG 378 ==
LOC: NEPC 14:48 → NEDA 17:29 → N04A 19:16
PROVIDERS: ADMIT Hospitalist; ATTEND Hospitalist
PROC: 30233N1 Transfusion of Nonautologous Red Blood Cells into Peripheral Vein, Percutaneous Approach (ICD-10-PCS; principal; 2017-11-02)
PROC: 0DB78ZX Excision of Stomach, Pylorus, Via Natural or Artificial Opening Endoscopic, Diagnostic (ICD-10-PCS; 2017-11-05)
PROC: 0DJD8ZZ Inspection of Lower Intestinal Tract, Via Natural or Artificial Opening Endoscopic (ICD-10-PCS; 2017-11-05)
PROC: 0DB98ZX Excision of Duodenum, Via Natural or Artificial Opening Endoscopic, Diagnostic (ICD-10-PCS; 2017-11-05 11:21)
DX: K92.2 Gastrointestinal hemorrhage, unspecified (principal); E87.1 Hypo-osmolality and hyponatremia; I10 Essential (primary) hypertension; Z68.1 Body mass index [BMI] 19.9 or less, adult; F17.210 Nicotine dependence, cigarettes, uncomplicated; D50.9 Iron deficiency anemia, unspecified; I77.6 Arteritis, unspecified; M06.9 Rheumatoid arthritis, unspecified; M79.604 Pain in right leg; K59.09 Other constipation; R63.4 Abnormal weight loss; K29.70 Gastritis, unspecified, without bleeding; K57.30 Diverticulosis of large intestine without perforation or abscess without bleeding; K31.9 Disease of stomach and duodenum, unspecified; D63.8 Anemia in other chronic diseases classified elsewhere; M79.605 Pain in left leg; K59.03 Drug induced constipation; G89.29 Other chronic pain; R29.6 Repeated falls; T40.605A Adverse effect of unspecified narcotics, initial encounter; R26.9 Unspecified abnormalities of gait and mobility; Z85.6 Personal history of leukemia; Z85.46 Personal history of malignant neoplasm of prostate; Z79.82 Long term (current) use of aspirin; Z95.820 Peripheral vascular angioplasty status with implants and grafts; Z91.19 Patient's noncompliance with other medical treatment and regimen
CPT/HCPCS: 36415; 36430; 71045; 80053; 81001; 82105; 82378; 82607; 82728; 82746; 82747; 83010; 83036; 83540; 83550; 83615; 83735; 84100; 84439; 84443; 85014; 85018; 85025; 85027; 85044; 85060; 85610; 85730; 86301; 86747; 86850; 86900; 86901; 86920; 87086; 88305; 88312; 93005; 96361; 96374; J1940; J2250; J2270; J2370; J2405; J3420; J7030; J7050; P9016